=== PATIENT | female | born 2000 | race Caucasian/White ===

== ENCOUNTER 2021-11-20 15:06 | Outpatient (CLI) | payer SELFPAY ==
[2021-11-20 15:27] LABS: Absolute Lymphocyte Count 2.94 X10^3/uL (0.83-4.51); Absolute Neutrophil Count 9.1 X10^3/uL (2.0-7.7); Basophil# 0.07 X10^3/uL; Basophil% 0.5 % (0-1); Eosinophil# 0.27 X10^3/uL; Eosinophils% 2.1 % (0-5); Hemoglobin 11.8 g/dL (12.0-15.0); Lymphocyte # 2.94 X10^3/ul (0.83-4.51); Lymphocyte % 22.4 % (19-41); Mean Corp Hgb Conc 34.7 g/dL (32-36); Mean Corpuscular Hgb 31.1 pg (27.0-32.0); Mean Corpuscular Volume 89.5 fL (81-99); Mean Platelet Vol. 9.5 fl (6.2-12.0); Monocyte# 0.76 X10^3/uL; Monocyte% 5.8 % (0-10); NRBC Flagged by Analyzer 0 % (0-5); Neutrophil # 9.08 X10^3/uL (2.7-7.7); Platelet Count 215 K/mm3 (150-450); RBC Distribution Width CV 12.1 % (11.6-14.6); RBC Distribution Width SD 39.8 fl (35.1-43.9); White Blood Count 13.2 K/mm3 (4.4-11.0)
[2021-11-21 07:56] LABS: Rubella IgG Non-Reactive (Nonreactive)
[2021-12-01 23:09] LABS: HPV APTIMA, High Risk Negative (Negative)
[2021-12-01 23:11] LABS: HPV Reflexed? YES, CHARGE PATIENT
== END 2021-11-20 23:59 | disposition home or self-care (01) ==
PROVIDERS: Referring Provider Obstetrics & Gynecology; Visit Provider Obstetrics & Gynecology
DX: Z34.90 Encounter for supervision of normal pregnancy, unspecified, unspecified trimester (principal)
CPT/HCPCS: 36415; 85025; 86762; 86850; 86900; 86901; 87086; 87088; 87624; 88175; G0145

== ENCOUNTER → 2022-02-06 | Outpatient (CLI) | payer SELFPAY ==
--- NOTE | 2022-02-06 12:20 | US_ITS ---
INDICATION: , 90 EXAMINATION: Ultrasound US OB Greater Than 14 Weeks TECHNIQUE: Transabdominal and endovaginal pelvic obstetric ultrasound was performed. COMPARISON: None received. FINDINGS: Single live intrauterine fetus in breech presentation with heart rate 138 BPM. Grade 0 anterofundal placenta with no placenta previa or abruption. Closed cervix measures 4 cm length on endovaginal imaging. Amniotic fluid within normal limits, largest pocket measuring 4.2 x 5.5 cm. Maternal adnexa imaged but ovaries are not visualized. Visualized and unremarkable 4 chamber heart, spine, intracranial structures, facial profile, diaphragm, stomach, abdominal wall, kidneys, urinary bladder, three-vessel umbilical cord, cord insertion and 4 extremities. Female genitalia suggested. Estimated gestational age of 19 weeks 0 days based on biometrics with SANDRINE of 07/03/2022. Concordant with clinical age of 19 weeks 1 day, LMP 09/25/2021. Estimated weight 277 g, 46th percentile. biometrics: BPD: 4.36 cm: 19 weeks, 1 day HC: 16.21 cm: 18 weeks, 6 days AC: 13.91 cm: 19 weeks, 2 days FL: 2.91 cm: 18 weeks, 6 days IMPRESSION: Single live intrauterine in breech presentation with no acute abnormality. EGA by ultrasound is 19 weeks 0 days and clinical age of 19 weeks 1 day. Electronically Signed: Mark Christianson MD at 3:37 EDT , INDICATION: anatomy EXAMINATION: Ultrasound US OB Transvaginal TECHNIQUE: Transabdominal and endovaginal pelvic obstetric ultrasound was performed. COMPARISON: None received. FINDINGS: Single live intrauterine fetus in breech presentation with heart rate 138 BPM. Grade 0 anterofundal placenta with no placenta previa or abruption. Closed cervix measures 4 cm length on endovaginal imaging. Amniotic fluid within normal limits, largest pocket measuring 4.2 x 5.5 cm. Maternal adnexa imaged but ovaries are not visualized. Visualized and unremarkable 4 chamber heart, spine, intracranial structures, facial profile, diaphragm, stomach, abdominal wall, kidneys, urinary bladder, three-vessel umbilical cord, cord insertion and 4 extremities. Female genitalia suggested. Estimated gestational age of 19 weeks 0 days based on biometrics with SANDRINE of 07/03/2022. Concordant with clinical age of 19 weeks 1 day, LMP 09/25/2021. Estimated weight 277 g, 46th percentile. biometrics: BPD: 4.36 cm: 19 weeks, 1 day HC: 16.21 cm: 18 weeks, 6 days AC: 13.91 cm: 19 weeks, 2 days FL: 2.91 cm: 18 weeks, 6 days US/Transvaginal w/Preg US IMPRESSION: Single live intrauterine in breech presentation with no acute abnormality. EGA by ultrasound is 19 weeks 0 days and clinical age of 19 weeks 1 day. Electronically Signed: Mark Christianson MD at 3:38 EDT ,
--- NOTE | 2022-02-06 12:20 | US_ITS ---
INDICATION: , 90 EXAMINATION: Ultrasound US OB Greater Than 14 Weeks TECHNIQUE: Transabdominal and endovaginal pelvic obstetric ultrasound was performed. COMPARISON: None received. FINDINGS: Single live intrauterine fetus in breech presentation with heart rate 138 BPM. Grade 0 anterofundal placenta with no placenta previa or abruption. Closed cervix measures 4 cm length on endovaginal imaging. Amniotic fluid within normal limits, largest pocket measuring 4.2 x 5.5 cm. Maternal adnexa imaged but ovaries are not visualized. Visualized and unremarkable 4 chamber heart, spine, intracranial structures, facial profile, diaphragm, stomach, abdominal wall, kidneys, urinary bladder, three-vessel umbilical cord, cord insertion and 4 extremities. Female genitalia suggested. Estimated gestational age of 19 weeks 0 days based on biometrics with SANDRINE of 07/03/2022. Concordant with clinical age of 19 weeks 1 day, LMP 09/25/2021. Estimated weight 277 g, 46th percentile. biometrics: BPD: 4.36 cm: 19 weeks, 1 day HC: 16.21 cm: 18 weeks, 6 days AC: 13.91 cm: 19 weeks, 2 days FL: 2.91 cm: 18 weeks, 6 days IMPRESSION: Single live intrauterine in breech presentation with no acute abnormality. EGA by ultrasound is 19 weeks 0 days and clinical age of 19 weeks 1 day. Electronically Signed: Mark Christianson MD at 3:37 EDT , INDICATION: anatomy EXAMINATION: Ultrasound US OB Transvaginal TECHNIQUE: Transabdominal and endovaginal pelvic obstetric ultrasound was performed. COMPARISON: None received. FINDINGS: Single live intrauterine fetus in breech presentation with heart rate 138 BPM. Grade 0 anterofundal placenta with no placenta previa or abruption. Closed cervix measures 4 cm length on endovaginal imaging. Amniotic fluid within normal limits, largest pocket measuring 4.2 x 5.5 cm. Maternal adnexa imaged but ovaries are not visualized. Visualized and unremarkable 4 chamber heart, spine, intracranial structures, facial profile, diaphragm, stomach, abdominal wall, kidneys, urinary bladder, three-vessel umbilical cord, cord insertion and 4 extremities. Female genitalia suggested. Estimated gestational age of 19 weeks 0 days based on biometrics with SANDRINE of 07/03/2022. Concordant with clinical age of 19 weeks 1 day, LMP 09/25/2021. Estimated weight 277 g, 46th percentile. biometrics: BPD: 4.36 cm: 19 weeks, 1 day HC: 16.21 cm: 18 weeks, 6 days AC: 13.91 cm: 19 weeks, 2 days FL: 2.91 cm: 18 weeks, 6 days US/OB Anatomy Scan IMPRESSION: Single live intrauterine in breech presentation with no acute abnormality. EGA by ultrasound is 19 weeks 0 days and clinical age of 19 weeks 1 day. Electronically Signed: Mark Crhistianson MD at 3:38 EDT ,
== END | disposition home or self-care (01) ==
PROVIDERS: Visit Provider Obstetrics & Gynecology
DX: Z34.00 Encounter for supervision of normal first pregnancy, unspecified trimester (principal)
CPT/HCPCS: 76805; 76817

== ENCOUNTER → 2022-04-08 | Outpatient (CLI) | payer SELFPAY ==
[2022-04-08 14:42] LABS: Absolute Lymphocyte Count 2.05 X10^3/uL (0.83-4.51); Basophil# 0.03 X10^3/uL; Basophil% 0.3 % (0-1); Eosinophil# 0.12 X10^3/uL; Eosinophils% 1.1 % (0-5); Hematocrit 34.2 % (37-47); Hemoglobin 11.8 g/dL (12.0-15.0); Lymphocyte # 2.05 X10^3/ul (0.83-4.51); Lymphocyte % 18.9 % (19-41); Mean Corp Hgb Conc 34.5 g/dL (32-36); Mean Corpuscular Hgb 32.2 pg (27.0-32.0); Mean Corpuscular Volume 93.2 fL (81-99); Mean Platelet Vol. 9.5 fl (6.2-12.0); Monocyte# 0.59 X10^3/uL; Monocyte% 5.5 % (0-10); NRBC Flagged by Analyzer 0 % (0-5); Neutrophil # 7.95 X10^3/uL (2.7-7.7); Neutrophil % 73.5 % (47-70); Platelet Count 230 K/mm3 (150-450); RBC Distribution Width CV 12.3 % (11.6-14.6); RBC Distribution Width SD 42.5 fl (35.1-43.9); Red Blood Count 3.67 M/mm3 (4.2-5.4); White Blood Count 10.8 K/mm3 (4.4-11.0)
[2022-04-08 14:57] LABS: Glucose Challenge Gest 1H 50g 115 mg/dL (70-140)
== END | disposition home or self-care (01) ==
PROVIDERS: Referring Provider Nurse Practitioner Women's Health; Visit Provider Nurse Practitioner Women's Health
DX: Z34.90 Encounter for supervision of normal pregnancy, unspecified, unspecified trimester (principal)
CPT/HCPCS: 36415; 82950; 85025

== ENCOUNTER → 2022-06-03 | Outpatient (CLI) | payer OTHER, SELFPAY | END | disposition home or self-care (01) | PROVIDERS: Visit Provider Obstetrics & Gynecology | DX: Z34.00 Encounter for supervision of normal first pregnancy, unspecified trimester (principal) | CPT/HCPCS: 87081 ==

== ENCOUNTER 2022-06-30 22:45 | Outpatient (CLI) | payer SELFPAY ==
[2022-06-30 22:49] VITALS: BMI 32.1
[2022-06-30 23:02] VITALS: BP 136/84; PULSE 102; PULSE 105; TEMP 36.9; O2SAT 98
[2022-06-30 23:59] LABS: ROM Internal Control Test YES-OK TO RESULT pt. (Internal QC); ROM Patient Test Negative (Negative)
--- NOTE | 2022-07-01 07:38 | PCM.PN.OB ---
Subjective Subjective pt called with sudden gush of fluid Objective Data Objective Data Vital Signs: Vital Signs Temp Pulse BP Pulse Ox 98.5 F 105 H 136/84 H 98 06/30/22 23:02 06/30/22 23:02 06/30/22 23:02 06/30/22 23:02 Weight: 187 lb 6.4 oz Body Mass Index (BMI) 32.1 Lab / Micro Data Labs: Laboratory Results - last 24 hr 06/30/22 23:14: Vag Amniotic Fld Detect Negative
--- NOTE | 2022-07-01 14:34 | OB.TRI.HP_ITS ---
HPI - General HPI Narrative SALMA EDWARDS, is a 21 who presents with leaking fluid and some contractions. She states like she had a sudden gush of fluid but then stopped. She states that this she thinks there is a possibility she may have urinated. Maternal Data Information SANDRINE Calculator Estimated Delivery Date Method Current WG Current Estimate 07/02/22 LMP (Certain) 39w 6d Other Estimates 07/06/22 Ultrasound #1 39w 2d PFSH PFSH Medical History ASCUS of cervix with negative high risk HPV Home Medications prenat.vits,dorothy,jpr-mbah-enrsy 1 tab PO DAILY 11/04/21 [History Last Taken 06/30/22 12:00] Allergy/AdvReac Type Severity Reaction Status Date / Time lactose Allergy Mild stomach Verified 06/30/22 23:02 cramps lettuce AdvReac Mild stomach Verified 06/30/22 23:02 cramps Family History Father Diabetes controlled with oral med Social History adopted: No household members: spouse current occupational status: unemployed pets and animals: No Smoking Status: Never smoker alcohol intake: never substance use type: does not use diet: lactose free well-balanced diet: daily or most days do you feel safe at home: Yes additional social history: Ran History 1 Elective abortions Hx Para 0 Spontaneous abortions Hx # Term Pregnancies Ectopic pregnancies Hx # Pregnancies Multiple births # of living children Visit Details Expected Delivery Route/Plan Labor Preferences- CB/BF classes: encouraged labor support person: Ran labor intervention preferences: only as needed, minimal intervention if possible pain management options preferred: natural cut cord/dad catch: Ran does not want to cut cord but may change his mind during labor. not comfortable around blood : yes PP control planned: none discussed possible routes of delivery and associated risks: [] special requests: [] Plans Covid status: counseled regarding risk of covid in vs vaccination and declined vaccination Flu vaccine: discussed Tdap vaccine: Rhogam: NA LARC form signed: yes Problem list reviewed and updated with the most current plan of care details and appropriate orders placed. Relevant counseling for the gestational age provided. Continue routine care and follow up unless otherwise noted in visit notes/problem list details OB Flowsheet Initial Weight: 130 lb Date -?-?-?-?-?-?-?-?-?-?-?-?- EGA Weight BP Urine Prot -?-?-?-?-?-?-?-?-?-?-?-?- Glucose FHR FuHt Pres Dilation -?-?-?-?-?-?-?-?-?-?-?-?- Effaced St Visit Note 11/20/21 -?-?-?-?-?-?-?-?-?-?-?-?- 8w 0d 130 lb (+0 oz) 120/80 -?-?-?-?-?-?-?-?-?-?-?-?- 160 -?-?-?-?-?-?-?-?-?-?-?-?- Sm- CRL 12mm con s with LMP 12/19/21 -?-?-?-?-?-?-?-?-?-?-?-?- 12w 1d 138 lb 6 oz (+8 lb 6 oz) 128/84 Negative -?-?-?-?-?-?-?-?-?-?-?-?- Negative 163 -?-?-?-?-?-?-?-?-?-?-?-?- JV- normal bedsi de ultrasound interval growth. anatomy through [facility] ordered. 01/12/22 -?-?-?-?-?-?-?-?-?-?-?-?- 15w 4d 141 lb 8 oz (+11 lb 8 oz) 110/60 Negative -?-?-?-?-?-?-?-?-?-?-?-?- Negative 161 -?-?-?-?-?-?-?-?-?-?-?-?- MH-No VB. Feels well. Denies concerns. Anatomy US 02/06 [facility] 02/13/22 -?-?-?-?-?-?-?-?-?-?-?-?- 20w 1d 152 lb 8 oz (+22 lb 8 oz) 130/62 Negative -?-?-?-?-?-?-?-?-?-?-?-?- Negative 155 -?-?-?-?-?-?-?-?-?-?-?-?- JV- anatomy scan reviewed and normal. weight gain of 10 pounds in 5 weeks discussed. pt reassured and we discussed making healthy decisions with food choices 03/13/22 -?-?-?-?-?-?-?-?-?-?-?-?- 24w 1d 159 lb (+29 lb) 116/70 Negative -?-?-?-?-?-?-?-?-?-?-?-?- Negative 150 24 -?-?-?-?-?-?-?-?-?-?-?-?- SM- no vb lof go od fm no regular ctx 04/08/22 -?-?-?-?-?-?-?-?-?-?-?-?- 27w 6d 167 lb 2 oz (+37 lb 2 oz) 136/78 Negative -?-?-?-?-?-?-?-?-?-?-?-?- Negative 151 27 -?-?-?-?-?-?-?-?-?-?-?-?- MH-NO VB, LOF. G ood FM. Some swelling of feet, reassured. 28 wk labs, [facility] 05/06/22 -?-?-?-?-?-?-?-?-?-?-?-?- 31w 6d 174 lb 4 oz (+44 lb 4 oz) 126/82 Negative -?-?-?-?-?-?-?-?-?-?-?-?- Negative 135 31 -?-?-?-?-?-?-?-?-?-?-?-?- JV- no lof ,vagi nal bleeding, or dec fm. larc signed today, 05/13/22 -?-?-?-?-?-?-?-?-?-?-?-?- 32w 6d 174 lb (+44 lb) 134/80 -?-?-?-?-?-?-?-?-?-?-?-?- 135 33 -?-?-?-?-?-?-?-?-?-?-?-?- SM- no vb lof go od fm no reuglar ctx 06/03/22 -?-?-?-?-?-?-?-?-?-?-?-?- 35w 6d 177 lb 2 oz (+47 lb 2 oz) 120/87 Negative -?-?-?-?-?-?-?-?-?-?-?-?- Negative 140 35 Cephalic 0 -?-?-?-?-?-?-?-?-?-?-?-?- JV- no lof ,v ag inal bleeding, or dec fm. wants cervcal exam. 06/10/22 -?-?-?-?-?-?-?-?-?-?-?-?- 36w 6d 182 lb 2 oz (+52 lb 2 oz) 136/84 Negative -?-?-?-?-?-?-?-?-?-?-?-?- Negative 125 36 Cephalic 0 .5 -?-?-?-?-?-?-?-?-?-?-?-?- JV- no lof, vagi nal bleeding, or dec fm. GBS neg. labor precautions discussed. 06/19/22 -?-?-?-?--?-?-?-?-?-?-?-?- 38w 1d 181 lb 4 oz (+51 lb 4 oz) 132/85 Negative -?-?-?-?-?-?-?-?-?-?-?-?- Negative 130 38 Cephalic 2 -?-?--?-?-?-?-?-?-?-?-?-?- 50 -2 SM- no vb lof good fm no regular ctx 06/24/22 -?-?-?-?-?-?-?-?-?-?-?-?- 38w 6d 184 lb (+54 lb) 126/85 Negative -?-?-?-?-?-?-?-?-?-?-?-?- Negative 150 39 Cephalic 2 -?-?-?-?-?-?-?-?-?-?-?-?- 50 -2 LC- no lof ,vb,consistent ctx. good FM. gbs negative. ROS Constitutional Constitutional: Reports systems reviewed and no addt'l complaints, except as documented Gastrointestinal Gastrointestinal: Denies bloating, constipation, cramping, diarrhea, nausea or vomiting Genitourinary Genitourinary: Reports other Details: Denies vaginal odor, vaginal bleeding, or vaginal discharge ; Denies difficulty urinating or flank pain NST FHR Rate Baby A Baseline: 120's-130's with some changes in baseline throughout. Variability:: Moderate Accelerations:: 15 x 15 Decelerations:: None NST Reactive:: Yes FHR Category:: Category I Assessment & Plan (1) ASCUS of cervix with negative high risk HPV: (2) Rubella non-immune status, antepartum: COMMENT: MMR pp (3) Supervision of normal first : QUALIFIERS: Trimester: second trimester Qualified Code(s): Z34.02 - Encounter for supervision of normal first , second trimester COMMENT: PRR SANDRINE: 07/02/22 girl [place] Spouse: Ran (SP LABS urinecx, cbc, blood type, rubella) (4) : QUALIFIERS: Weeks of gestation: 38 weeks Qualified Code(s): Z3A.38 - 38 weeks gestation of COMMENT: GBS neg. declines genetic and carrier screening (5) False labor after 37 completed weeks of gestation: COMMENT: seen in triage 06/30/22 - unchanged cx negative rom + PLAN: rom plus neg. no signs of active labor. dc to home. Charges/Coding Multi Select Codes Urinary/Genital Urinary/Genital CPT Codes: 40409-72 non-stress test Interp
--- NOTE | 2022-07-01 14:34 | OB.TRI.NOTE ---
HPI - General HPI Narrative SALMA EDWARDS, is a 21 who presents with leaking fluid and some contractions. She states like she had a sudden gush of fluid but then stopped. She states that this she thinks there is a possibility she may have urinated. Maternal Data Information SANDRINE Calculator Estimated Delivery Date Method Current WG Current Estimate 07/02/22 LMP (Certain) 39w 6d Other Estimates 07/06/22 Ultrasound #1 39w 2d PFSH PFSH Medical History ASCUS of cervix with negative high risk HPV Home Medications prenat.vits,dorothy,xrx-nnvj-xnrif 1 tab PO DAILY 11/04/21 [History Last Taken 06/30/22 12:00] Allergy/AdvReac Type Severity Reaction Status Date / Time lactose Allergy Mild stomach Verified 06/30/22 23:02 cramps lettuce AdvReac Mild stomach Verified 06/30/22 23:02 cramps Family History Father Diabetes controlled with oral med Social History adopted: No household members: spouse current occupational status: unemployed pets and animals: No Smoking Status: Never smoker alcohol intake: never substance use type: does not use diet: lactose free well-balanced diet: daily or most days do you feel safe at home: Yes additional social history: Ran History 1 Elective abortions Hx Para 0 Spontaneous abortions Hx # Term Pregnancies Ectopic pregnancies Hx # Pregnancies Multiple births # of living children Visit Details Expected Delivery Route/Plan Labor Preferences- CB/BF classes: encouraged labor support person: Ran labor intervention preferences: only as needed, minimal intervention if possible pain management options preferred: natural cut cord/dad catch: Ran does not want to cut cord but may change his mind during labor. not comfortable around blood : yes PP control planned: none discussed possible routes of delivery and associated risks: [] special requests: [] Plans Covid status: counseled regarding risk of covid in vs vaccination and declined vaccination Flu vaccine: discussed Tdap vaccine: Rhogam: NA LARC form signed: yes Problem list reviewed and updated with the most current plan of care details and appropriate orders placed. Relevant counseling for the gestational age provided. Continue routine care and follow up unless otherwise noted in visit notes/problem list details OB Flowsheet Initial Weight: 130 lb Date <del>?</del> EGA Weight BP Urine Prot <del>?</del> Glucose FHR FuHt Pres Dilation <del>?</del> Effaced St Visit Note 11/20/21 <del>?</del> 8w 0d 130 lb (+0 oz) 120/80 <del>?</del> 160 <del>?</del> Sm- CRL 12mm cons with LMP 12/19/21 <del>?</del> 12w 1d 138 lb 6 oz (+8 lb 6 oz) 128/84 Negative <del>?</del> Negative 163 <del>?</del> JV- normal bedside ultrasound interval growth. anatomy through [facility] ordered. 01/12/22 <del>?</del> 15w 4d 141 lb 8 oz (+11 lb 8 oz) 110/60 Negative <del>?</del> Negative 161 <del>?</del> MH-No VB. Feels well. Denies concerns. Anatomy US 02/06 [facility] 02/13/22 <del>?</del> 20w 1d 152 lb 8 oz (+22 lb 8 oz) 130/62 Negative <del>?</del> Negative 155 <del>?</del> JV- anatomy scan reviewed and normal. weight gain of 10 pounds in 5 weeks discussed. pt reassured and we discussed making healthy decisions with food choices 03/13/22 <del>?</del> 24w 1d 159 lb (+29 lb) 116/70 Negative <del>?</del> Negative 150 24 <del>?</del> SM- no vb lof good fm no regular ctx 04/08/22 <del>?</del> 27w 6d 167 lb 2 oz (+37 lb 2 oz) 136/78 Negative <del>?</del> Negative 151 27 <del>?</del> MH-NO VB, LOF. Good FM. Some swelling of feet, reassured. 28 wk labs, [facility] 05/06/22 <del>?</del> 31w 6d 174 lb 4 oz (+44 lb 4 oz) 126/82 Negative <del>?</del> Negative 135 31 <del>?</del> JV- no lof ,vaginal bleeding, or dec fm. larc signed today, 05/13/22 <del>?</del> 32w 6d 174 lb (+44 lb) 134/80 <del>?</del> 135 33 <del>?</del> SM- no vb lof good fm no reuglar ctx 06/03/22 <del>?</del> 35w 6d 177 lb 2 oz (+47 lb 2 oz) 120/87 Negative <del>?</del> Negative 140 35 Cephalic 0 <del>?</del> JV- no lof ,v aginal bleeding, or dec fm. wants cervcal exam. 06/10/22 <del>?</del> 36w 6d 182 lb 2 oz (+52 lb 2 oz) 136/84 Negative <del>?</del> Negative 125 36 Cephalic 0.5 <del>?</del> JV- no lof, vaginal bleeding, or dec fm. GBS neg. labor precautions discussed. 06/19/22 <del>?</del> 38w 1d 181 lb 4 oz (+51 lb 4 oz) 132/85 Negative <del>?</del> Negative 130 38 Cephalic 2 <del>?</del> 50 -2 SM- no vb lof good fm no regular ctx 06/24/22 <del>?</del> 38w 6d 184 lb (+54 lb) 126/85 Negative <del>?</del> Negative 150 39 Cephalic 2 <del>?</del> 50 -2 LC- no lof,vb,consistent ctx. good FM. gbs negative. ROS Constitutional Constitutional: Reports systems reviewed and no addt'l complaints, except as documented Gastrointestinal Gastrointestinal: Denies bloating, constipation, cramping, diarrhea, nausea or vomiting Genitourinary Genitourinary: Reports other Details: Denies vaginal odor, vaginal bleeding, or vaginal discharge ; Denies difficulty urinating or flank pain NST FHR Rate Baby A Baseline: 120's-130's with some changes in baseline throughout. Variability:: Moderate Accelerations:: 15 x 15 Decelerations:: None NST Reactive:: Yes FHR Category:: Category I Assessment & Plan (1) ASCUS of cervix with negative high risk HPV: (2) Rubella non-immune status, antepartum: COMMENT: MMR pp (3) Supervision of normal first : QUALIFIERS: Trimester: second trimester Qualified Code(s): Z34.02 - Encounter for supervision of normal first , second trimester COMMENT: PRR SANDRINE: 07/02/22 girl [place] Spouse: Ran (SP LABS urinecx, cbc, blood type, rubella) (4) : QUALIFIERS: Weeks of gestation: 38 weeks Qualified Code(s): Z3A.38 - 38 weeks gestation of COMMENT: GBS neg. declines genetic and carrier screening (5) False labor after 37 completed weeks of gestation: COMMENT: seen in triage 06/30/22 - unchanged cx negative rom + PLAN: rom plus neg. no signs of active labor. dc to home. Charges/Coding Multi Select Codes Urinary/Genital Urinary/Genital CPT Codes: 75392-79 non-stress test Interp
== END 2022-07-01 01:25 | disposition home or self-care (01) ==
LOC: WPOUT 22:46 → WP 22:48
PROVIDERS: Visit Provider Obstetrics & Gynecology
DX: O47.1 False labor at or after 37 completed weeks of gestation (principal); Z3A.38 38 weeks gestation of pregnancy
CPT/HCPCS: 59025; 59050; 84112; 99218; G0378

== ENCOUNTER 2022-07-06 15:40 | Inpatient (IN) | payer SELFPAY ==
[2022-07-06] VITALS (18 sets, daily range): BP systolic 135–195; BP diastolic 79–104; PULSE 71–109; TEMP 36.4–36.7; O2SAT 93–100; BMI 31.7
[2022-07-06 15:46] LABS: Absolute Lymphocyte Count 1.92 X10^3/uL (0.83-4.51); Absolute Neutrophil Count 8.1 X10^3/uL (2.0-7.7); Basophil# 0.03 X10^3/uL; Basophil% 0.3 % (0-1); Eosinophil# 0.12 X10^3/uL; Eosinophils% 1.1 % (0-5); Hemoglobin 12.8 g/dL (12.0-15.0); Lymphocyte # 1.92 X10^3/ul (0.83-4.51); Lymphocyte % 17.8 % (19-41); Mean Corp Hgb Conc 34.6 g/dL (32-36); Mean Corpuscular Hgb 31.9 pg (27.0-32.0); Mean Corpuscular Volume 92.3 fL (81-99); Mean Platelet Vol. 10.4 fl (6.2-12.0); Monocyte# 0.59 X10^3/uL; Monocyte% 5.5 % (0-10); NRBC Flagged by Analyzer 0 % (0-5); Neutrophil % 74.9 % (47-70); Platelet Count 242 K/mm3 (150-450); RBC Distribution Width SD 40.8 fl (35.1-43.9); Red Blood Count 4.01 M/mm3 (4.2-5.4); White Blood Count 10.8 K/mm3 (4.4-11.0)
--- NOTE | 2022-07-06 16:34 | HP.PCM.OB_ITS ---
HPI - General General Date of Admission: 07/06/22 HPI Narrative SALMA EDWARDS, is a 21 F who presents to labor and at 40+4 (based on LMP) for rule out SROM, patient reports sudden gush of clear leaking of fluid at 1230. intermittent contractions, no vaginal bleeding, active fetus. care is complicated by ASCUS, rubella nonimmune, limited screening. Patient is O+, 1 hour glucose 115. 28-week H&H 12.8/37. Blood pressure on admission 130/63 however subsequent repeat pressures have been in the 140-149-93/98. Patient denies headaches, visual changes, right epigastric pain. Maternal Data Information SANDRINE Calculator Estimated Delivery Date Method Current WG Current Estimate 07/02/22 LMP (Certain) 40w 4d Other Estimates 07/06/22 Ultrasound #1 40w 0d Final SANDRINE Source: LMP Gestational age: 40+4 PFSH PFSH Medical History ASCUS of cervix with negative high risk HPV Home Medications prenat.vits,dorothy,[id number] 1 tab PO DAILY 11/04/21 [History Last Taken 07/06/22 11:00] Allergy/AdvReac Type Severity Reaction Status Date / Time lactose Allergy Mild stomach Verified 06/30/22 23:02 cramps lettuce AdvReac Mild stomach Verified 06/30/22 23:02 cramps Family History Father Diabetes controlled with oral med Social History adopted: No household members: spouse current occupational status: unemployed pets and animals: No Smoking Status: Former smoker alcohol intake: never substance use type: does not use diet: lactose free well-balanced diet: daily or most days do you feel safe at home: Yes additional social history: Ran History 1 Elective abortions Hx Para 0 Spontaneous abortions Hx # Term Pregnancies Ectopic pregnancies Hx # Pregnancies Multiple births # of living children Visit Details Expected Delivery Route/Plan Labor Preferences- CB/BF classes: encouraged labor support person: Ran labor intervention preferences: only as needed, minimal intervention if possible pain management options preferred: natural cut cord/dad catch: Ran does not want to cut cord but may change his mind during labor. not comfortable around blood : yes PP control planned: none discussed possible routes of delivery and associated risks: [] special requests: [Desires to assist in delivery] Plans Covid status: counseled regarding risk of covid in vs vaccination and declined vaccination Flu vaccine: discussed Tdap vaccine: Rhogam: NA LARC form signed: yes Problem list reviewed and updated with the most current plan of care details and appropriate orders placed. Relevant counseling for the gestational age provided. Continue routine care and follow up unless otherwise noted in visit notes/problem list details OB Flowsheet Initial Weight: 130 lb Date -?-?-?-?-?-?-?-?-?-?-?-?- EGA Weight BP Urine Prot -?-?-?-?-?-?-?-?-?-?-?-?- Glucose FHR FuHt Pres Dilation -?-?-?-?-?-?-?-?-?-?-?-?- Effaced St Visit Note 11/20/21 -?--?-?-?-?-?-?-?-?-?-?-?- 8w 0d 130 lb (+0 oz) 120/80 -?-?-?-?-?-?-?-?-?-?-?-?- 160 -?-?-?-?-?-?-?-?-?-?-?-?- Sm- CRL 12mm con s with LMP 12/19/21 -?-?-?-?-?-?-?-?-?-?-?-?- 12w 1d 138 lb 6 oz (+8 lb 6 oz) 128/84 Negative -?-?-?-?-?-?-?-?-?-?-?-?- Negative 163 -?-?-?-?-?-?-?-?-?-?-?-?- JV- normal bedsi de ultrasound interval growth. anatomy through [facility] ordered. 01/12/22 -?-?-?-?-?-?-?-?-?-?-?-?- 15w 4d 141 lb 8 oz (+11 lb 8 oz) 110/60 Negative -?-?-?-?-?-?-?-?-?-?-?-?- Negative 161 -?-?-?-?-?-?-?-?-?-?-?-?- -No VB. Feels well. Denies concerns. Anatomy US 02/06 [facility] 02/13/22 -?-?-?-?-?-?-?-?-?-?-?-?- 20w 1d 152 lb 8 oz (+22 lb 8 oz) 130/62 Negative -?-?-?-?-?-?-?-?-?-?-?-?- Negative 155 -?-?-?-?-?-?-?-?-?-?-?-?- JV- anatomy scan reviewed and normal. weight gain of 10 pounds in 5 weeks discussed. pt reassured and we discussed making healthy decisions with food choices 03/13/22 -?-?-?-?-?-?-?-?-?-?-?-?- 24w 1d 159 lb (+29 lb) 116/70 Negative -?--?-?-?-?-?-?-?-?-?-?-?- Negative 150 24 -?-?-?-?-?-?-?-?-?-?-?-?- - no vb lof go od fm no regular ctx 04/08/22 -?-?-?-?-?-?-?-?-?-?-?-?- 27w 6d 167 lb 2 oz (+37 lb 2 oz) 136/78 Negative -?-?-?-?-?-?-?-?-?-?-?-?- Negative 151 27 -?-?-?-?-?-?-?-?-?-?-?-?- -NO VB, LOF. G ood FM. Some swelling of feet, reassured. 28 wk labs, [facility] 05/06/22 -?-?-?-?-?-?-?-?-?-?-?-?- 31w 6d 174 lb 4 oz (+44 lb 4 oz) 126/82 Negative -?-?-?-?-?-?-?-?-?-?-?-?- Negative 135 31 -?-?-?-?-?-?-?-?-?-?-?-?- JV- no lof ,vagi nal bleeding, or dec fm. larc signed today, 05/13/22 -?-?-?-?-?-?-?-?-?-?-?-?- 32w 6d 174 lb (+44 lb) 134/80 -?-?-?-?-?-?-?-?-?-?-?-?- 135 33 -?-?-?-?-?-?-?-?-?-?-?-?- SM- no vb lof go od fm no reuglar ctx 06/03/22 -?-?-?-?-?-?-?-?-?-?-?-?- 35w 6d 177 lb 2 oz (+47 lb 2 oz) 120/87 Negative -?-?-?-?-?-?-?-?-?-?--?-?- Negative 140 35 Cephalic 0 -?-?-?-?-?-?-?-?-?-?-?-?- JV- no lof ,v ag inal bleeding, or dec fm. wants cervcal exam. 06/10/22 -?-?-?-?-?-?--?-?-?-?-?-?- 36w 6d 182 lb 2 oz (+52 lb 2 oz) 136/84 Negative -?-?-?-?-?-?-?-?-?-?-?-?- Negative 125 36 Cephalic 0 .5 -?-?--?-?-?-?-?-?-?-?-?-?- JV- no lof, vagi nal bleeding, or dec fm. GBS neg. labor precautions discussed. 06/19/22 -?-?-?-?-?-?-?-?-?-?-?-?- 38w 1d 181 lb 4 oz (+51 lb 4 oz) 132/85 Negative -?-?-?-?-?-?-?-?-?-?-?-?- Negative 130 38 Cephalic 2 -?-?-?-?-?-?-?-?-?-?-?-?- 50 -2 SM- no vb lof good fm no regular ctx 06/24/22 -?-?-?-?-?-?-?-?-?-?-?-?- 38w 6d 184 lb (+54 lb) 126/85 Negative -?-?-?-?-?-?-?-?-?-?-?-?- Negative 150 39 Cephalic 2 -?-?-?-?-?-?-?-?-?-?-?-?- 50 -2 LC- no lof ,vb,consistent ctx. good FM. gbs negative. 07/03/22 -?-?-?-?-?-?-?-?-?-?-?-?- 40w 1d 185 lb (+55 lb) 126/80 Negative -?-?-?-?-?-?-?-?-?-?-?-?- Negative 145 40 Cephalic 3 -?-?-?-?-?-?-?-?-?-?-?-?- 80 -1 SM- no vb lof good fm no reuglar ctx membranes swept 07/06/22 -?-?-?-?-?-?-?-?-?-?-?-?- 40w 4d 185 lb (+55 lb) 138/79 143/98 149/93 -?-?-?-?-?-?-?-?-?-?-?--?- -?-?-?-?-?-?-?-?-?-?-?-?- NST FHR Rate Baby A Baseline: 145 Variability:: Moderate Accelerations:: 15 x 15 Decelerations:: None NST Reactive:: Yes FHR Category:: Category I Uterine Activity:: q2 minutes x60 seconds ROS Cardiovascular Cardiovascular: Denies abdominal pain, chest pain, diaphoresis, dyspnea, edema or fatigue Respiratory/Chest Respiratory/Chest: Denies change in mental status, chest congestion, chest tightness, cough, shortness of breath at rest, shortness of breath with exertion, breast mass, breast pain, breast skin changes, breast swelling, change in breast shape or nipple discharge Gastrointestinal Gastrointestinal: Denies diarrhea, hemorrhoids, nausea, vomiting or weight changes Genitourinary Genitourinary: Denies abdominal discomfort, burning urination, change in libido, change in urinary stream, contractions, difficulty urinating, dysuria, movement, low back pain, urinary frequency, urinary hesitancy, urinary incontinence or urinary urgency Musculoskeletal Musculoskeletal: Reports none Integumentary Integumentary: Reports none Neurologic Neurologic: Reports none Psychiatric Psychiatric: Reports none Endocrine Endocrinology: Reports none Hematologic/Lymphatic Hematologic/Lymphatic: Reports none Allergic/Immunologic Allergic/Immunologic: Reports none Vital Signs Vital Signs Vital Signs: 07/06/22 15:15 07/06/22 15:15 07/06/22 15:14 Temperature Temperature Source Pulse Rate 86 Blood Pressure 138/79 H BP Systolic 138 BP Diastolic 79 Pulse Ox 99 07/06/22 15:14 07/06/22 15:14 07/06/22 16:12 Temperature 98.1 F Temperature Source Temporal Pulse Rate Blood Pressure 143/98 H BP Systolic 143 BP Diastolic 98 Pulse Ox 07/06/22 16:12 07/06/22 16:13 07/06/22 16:13 Temperature Temperature Source Temporal Pulse Rate 92 Blood Pressure BP Systolic BP Diastolic Pulse Ox 98 07/06/22 16:13 07/06/22 16:30 07/06/22 16:30 Temperature 97.9 F Temperature Source Pulse Rate 87 Blood Pressure 149/93 H BP Systolic 149 BP Diastolic 93 Pulse Ox Weight Weight: 185 lb Body Mass Index (BMI) 31.7 Labs Labs Labs: Blood Type O POSITIVE Antibody Screen NEGATIVE Hct 37.0 % (37-47) Hgb 12.8 g/dL (12.0-15.0) Obstetrics US Syphilis Total Ab Pending Rubella IgG Antibody Non-Reactive (Nonreactive) Hep Bs Antigen Pending HIV 1&2 Antibody Pending Glucose 1 Hr 50 gm 115 mg/dL (70-140) Assessment & Plan (1) Elevated systolic blood pressure reading without diagnosis of hypertension: COMMENT: obtain preeclamptic work-up (2) Rubella non-immune status, antepartum: COMMENT: MMR pp (3) Supervision of normal first : QUALIFIERS: Trimester: second trimester Qualified Code(s): Z34.02 - Encounter for supervision of normal first , second trimester COMMENT: PRR SANDRINE: 07/02/22 girl [place] Spouse: Ran (SP LABS urinecx, cbc, blood type, rubella obtained) (4) : QUALIFIERS: Weeks of gestation: 40 weeks Qualified Code(s): Z3A.40 - 40 weeks gestation of COMMENT: GBS neg. declines genetic and carrier screening (5) SROM (spontaneous rupture of membranes): COMMENT: clear fluid. ROM at 1230pm 07/06 (6) Spontaneous onset of labor: COMMENT: admit at 3-4cm PLAN: minimal intervention unless labor curve is skewed. PLAN: Plan admit to L&D -obtain remaining self-pay labs -anticipate -case d/w Dr. Bender re:elevated BP agrees with POC. currently co-managed patient
[2022-07-06 16:53] LABS: HIV - WCH Non-Reactive (Nonreactive); Hepatitis B Surface Antigen Non-Reactive (Nonreactive); Hepatitis C Antibody Non-Reactive (Nonreactive)
[2022-07-06] MEDS: LACTATED RINGERS 500 ML 999 ML IV (16:53)
[2022-07-06] MEDS: Lactated Ringers 1,000 ML 50 ML IV (16:53)
[2022-07-06 18:31] LABS: AST(SGOT) 16 U/L (15-37); Alanine Aminotransfer ALT/SGPT 17 U/L (13-56); Creatinine, Serum 0.68 mg/dL (0.55-1.02); EST Glomerular Filtration Rate 114 mL/min (>60); Est Glom Filt Rate - Afr Amer 137 mL/min (>60); Estimated Creatinine Clearance 111.11 ml/min; Uric Acid 3.2 mg/dL (2.6-6.0)
[2022-07-06 18:36] LABS: Protein, Urine (Random) 7.2 mg/dL (<11.9); Protein:Creat Ratio 537 mg/g CRE (0-200)
[2022-07-06 19:12] LABS: Chlamydia Trachomatis by PCR Negative (Negative); Neisserai gonorrhoeae by PCR Negative (Negative); Probe Check PASS; Sample Adequacy Control PASS; Specimen Processing Control PASS
--- NOTE | 2022-07-06 21:43 | PCM.PN.OB ---
Subjective Subjective Patient tolerating contractions well continues to breathe through. Objective Data Objective Data Patient now with improved blood pressure without medical intervention. He continues to deny headache, blurred vision, right epigastric pain. clustering contraction pattern. performed unilateral squats x3 contractions bilaterally. with improved contraction pattern. Vital Signs: Vital Signs Temp Pulse BP Pulse Ox 97.8 F 79 137/94 H 99 07/06/22 20:41 07/06/22 20:40 07/06/22 20:40 07/06/22 20:41 Weight: 185 lb Body Mass Index (BMI) 31.7 Intake & Output: Intake and Output for Last 24 Hours 07/04/22 07/05/22 07/06/22 23:59 23:59 23:59 Intake Total 500 / 500 Balance 500 / 500 Lab / Micro Data Attestation: I reviewed the patient's lab results. Result Diagrams: 07/06/22 15:05 07/06/22 17:05 Labs: Laboratory Results - last 24 hr 07/06/22 15:05: WBC 10.8, RBC 4.01 L, Hgb 12.8, Hct 37.0, MCV 92.3, MCH 31.9, MCHC 34.6, RDW Std Deviation 40.8, RDW Coeff of Lilliana 12.0, Plt Count 242, MPV 10.4, Immature Gran % (Auto) 0.400, Neut % (Auto) 74.9 H, Lymph % (Auto) 17.8 L, Reeves % (Auto) 5.5, Eos % (Auto) 1.1, Baso % (Auto) 0.3, Absolute Neuts (auto) 8.1 H, Absolute Lymphs (auto) 1.92, Nucleated RBC % 0 07/06/22 15:05: Blood Type O POSITIVE, Antibody Screen NEGATIVE 07/06/22 15:05: Hep Bs Antigen Non-Reactive, Hepatitis C Antibody Non-Reactive, HIV 1&2 Antibody Non-Reactive 07/06/22 17:05: Chlam trachomat DNA PCR Negative, N.gonorrhoeae DNA (PCR) Negative 07/06/22 17:05: U Random Total Protein 7.2, Urine Creatinine 13.40, Protein/Creatinin Ratio 537 H 07/06/22 17:05: Creatinine 0.68, Estim Creat Clear Calc 111.11, Est GFR (MDRD) Af Amer 137, Est GFR (MDRD) Non-Af 114, Uric Acid 3.2, AST 16, ALT 17 Micro: Microbiology 07/06/22 15:05 Nasal Secretion SARS-CoV-2 Antigen (Rapid) - Final NST FHR Rate Baby A Baseline: 135 Variability:: Moderate Decelerations:: None NST Reactive:: Yes FHR Category:: Category I Uterine Activity:: q2-6.5min Assessment & Plan (1) Spontaneous onset of labor: COMMENT: admit at 3-4cm. Patient continues to make slow cervical change. clustering contraction pattern. performed unilateral squats x3 contractions bilaterally. with improved contraction pattern. continue with frequent position changes Recheck cervix at 22:30 if unchanged cervical exam please start Pitocin per protocol. (2) SROM (spontaneous rupture of membranes): COMMENT: clear fluid. ROM at 1230pm 07/06. Afebrile (3) Rubella non-immune status, antepartum: COMMENT: MMR pp (4) Pre-eclampsia: COMMENT: mild pre-eclampsia. now mild elevated BP. P:C >520. LFT normal, CBc normal.
[2022-07-06] MEDS: 0.9% Saline Lock 10 ML Syringe IV (23:35)
[2022-07-06] MEDS: Oxytocin 15 Units/NS 250ml 15 UNITS/250 ML IV.SOLN 2 UNITS IV (23:38)
[2022-07-07] VITALS (131 sets, daily range): BP systolic 98–180; BP diastolic 42–107; PULSE 78–245; RESP 14–20; TEMP 35.9–37.4; O2SAT 80–99
[2022-07-07] MEDS: Ondansetron 4 MG/2 ML Vial IV (03:09)
[2022-07-07] MEDS: fentaNYL 100 MCG/2 ML Ampul IV (03:24)
[2022-07-07] MEDS: Labetalol (Prefilled) 20 MG/4 ML IV ×3 (05:40→07:06)
[2022-07-07] MEDS: Magnesium Sulfate 4gm/100mL 4 GM/100 ML IV.SOLN. IV (05:42)
--- NOTE | 2022-07-07 05:46 | PCM.PN.OB ---
Subjective Subjective Lauren Rodriguez continues to cope through contractions. Voiding spontaneously, tolerating clear liquids. Denies headache, right epigastric pain, visual changes. Objective Data Objective Data Patient with strong contractions to palpation. Blood pressure 173/98 with repeat 162/93. No clonus, DTR +2. on 4mu of pitocin for augmentation. Cervical exam reveals 9/90/0. Vital Signs: Vital Signs Temp Pulse BP Pulse Ox 98.2 F 92 162/93 H 94 07/07/22 05:16 07/07/22 05:45 07/07/22 05:31 07/07/22 05:45 Weight: 185 lb Body Mass Index (BMI) 31.7 Intake & Output: Intake and Output for Last 24 Hours 07/05/22 07/06/22 07/07/22 23:59 23:59 23:59 Intake Total 500 / 500 581.37 / 581.37 Balance 500 / 500 581.37 / 581.37 Lab / Micro Data Attestation: I reviewed the patient's lab results. Result Diagrams: 07/06/22 15:05 07/06/22 17:05 Labs: Laboratory Results - last 24 hr 07/06/22 15:05: WBC 10.8, RBC 4.01 L, Hgb 12.8, Hct 37.0, MCV 92.3, MCH 31.9, MCHC 34.6, RDW Std Deviation 40.8, RDW Coeff of Lilliana 12.0, Plt Count 242, MPV 10.4, Immature Gran % (Auto) 0.400, Neut % (Auto) 74.9 H, Lymph % (Auto) 17.8 L, Hand % (Auto) 5.5, Eos % (Auto) 1.1, Baso % (Auto) 0.3, Absolute Neuts (auto) 8.1 H, Absolute Lymphs (auto) 1.92, Nucleated RBC % 0 07/06/22 15:05: Blood Type O POSITIVE, Antibody Screen NEGATIVE 07/06/22 15:05: Hep Bs Antigen Non-Reactive, Hepatitis C Antibody Non-Reactive, HIV 1&2 Antibody Non-Reactive 07/06/22 17:05: Chlam trachomat DNA PCR Negative, N.gonorrhoeae DNA (PCR) Negative 07/06/22 17:05: U Random Total Protein 7.2, Urine Creatinine 13.40, Protein/Creatinin Ratio 537 H 07/06/22 17:05: Creatinine 0.68, Estim Creat Clear Calc 111.11, Est GFR (MDRD) Af Amer 137, Est GFR (MDRD) Non-Af 114, Uric Acid 3.2, AST 16, ALT 17 Micro: Microbiology 07/06/22 15:05 Nasal Secretion SARS-CoV-2 Antigen (Rapid) - Final Physical Exam Resp Effort and Inspection: able to speak in complete sentences and symmetric chest movement Manual OB Exam: presentation cephalic, dilated 9, effaced 90 and station 0 Amniotic Fluid: clear amniotic fluid Extremity normal to inspection and full ROM Neuro oriented x3, no focal motor deficits and deep tendon reflexes 2+ bilaterally Psych mental status grossly normal NST FHR Rate Baby A Baseline: 145 Variability:: Moderate Accelerations:: 15 x 15 Decelerations:: Early NST Reactive:: Yes FHR Category:: Category I Assessment & Plan (1) Pre-eclampsia: COMMENT: mild pre-eclampsia. now mild elevated BP. P:C >520. LFT normal, CBc normal. (2) Spontaneous onset of labor: COMMENT: admit at 3-4cm. Patient continues to make slow cervical change. clustering contraction pattern. performed unilateral squats x3 contractions bilaterally. with improved contraction pattern. continue with frequent position changes labor augmented with pitocin. (3) SROM (spontaneous rupture of membranes): COMMENT: clear fluid. ROM at 1230pm 07/06. Afebrile (4) Rubella non-immune status, antepartum: COMMENT: MMR pp (5) Supervision of normal first : QUALIFIERS: Trimester: second trimester Qualified Code(s): Z34.02 - Encounter for supervision of normal first , second trimester COMMENT: PRR SANDRINE: 07/02/22 girl [place] Spouse: Ran (SP LABS urinecx, cbc, blood type, rubella obtained) PLAN: Plan Patient with severe blood pressures x2 consulted with Dr. Bender who agrees with management of labetalol 20 mg IV push now, 4 mg magnesium sulfate bolus to continue with a rate of 2 mg. heart rate and maternal status are reassuring anticipate
[2022-07-07] MEDS: Magnesium Sulfate 20 GM/500 ML BAG IV (06:02)
[2022-07-07] MEDS: Labetalol 100 MG Tablet PO (06:07)
[2022-07-07] MEDS: Lactated Ringers 1,000 ML 50 ML IV (07:42)
[2022-07-07 08:48] LABS: Syphilis Antibodies Non-reactive
[2022-07-07] MEDS: DiphenhydrAMINE 50 MG/ML Syringe IV (09:00)
[2022-07-07] MEDS: LACTATED RINGERS 500 ML 999 ML IV (09:45)
[2022-07-07] MEDS: fentaNYL-bupivacaine (epidural) 100 ML BAG EPIDURAL (10:31)
--- NOTE | 2022-07-07 13:59 | EX.PCM.OBRPT ---
Assessment & Plan (1) Pre-eclampsia: COMMENT: mild pre-eclampsia. now mild elevated BP. P:C >520. LFT normal, CBc normal. (2) Spontaneous onset of labor: COMMENT: admit at 3-4cm. Patient continues to make slow cervical change. clustering contraction pattern. performed unilateral squats x3 contractions bilaterally. with improved contraction pattern. continue with frequent position changes labor augmented with pitocin. (3) SROM (spontaneous rupture of membranes): COMMENT: clear fluid. ROM at 1230pm 07/06. Afebrile (4) Elevated systolic blood pressure reading without diagnosis of hypertension: (5) ASCUS of cervix with negative high risk HPV: (6) Rubella non-immune status, antepartum: COMMENT: MMR pp (7) Supervision of normal first : QUALIFIERS: Trimester: second trimester Qualified Code(s): Z34.02 - Encounter for supervision of normal first , second trimester COMMENT: PRR SANDRINE: 07/02/22 girl [place] Spouse: Ran (SP LABS urinecx, cbc, blood type, rubella obtained) (8) : QUALIFIERS: Weeks of gestation: 40 weeks Qualified Code(s): Z3A.40 - 40 weeks gestation of COMMENT: GBS neg. declines genetic and carrier screening Maternal Data Information SANDRINE Calculator Estimated Delivery Date Method Current WG Current Estimate 07/02/22 LMP (Certain) 40w 5d Other Estimates 07/06/22 Ultrasound #1 40w 1d Vaginal Delivery Maternal Presentation Maternal Presentation: Spontaneous Rupture of Membranes Type of Induction: Pitocin Medical Reason for Induction: Suspected Chorioamnionitis Operative Information Date of Procedure: 07/07/22 Pre-Operative Diagnosis: 40 weeks 5 days , pre-eclampsia, pprom Post-Operative Diagnosis: 40 weeks 5 days , pre-eclampsia, pprom Surgery / Procedure Performed: Spontaneous Vaginal Delivery Type of Anesthesia: Epidural Estimated Blood Loss: 200cc Findings Description of Procedure: Patient began pushing and delivered the head in the JEFF presentation. The head was delivered atraumatically. The anterior and posterior shoulders delivered without complication followed by the rest of the infant and the infant was placed on the maternal abdomen. Delayed cord clamping was employed for approximately 60 seconds. Cord was clamped and cut and gentle traction was applied to the cord and the placenta delivered with some help unroofing the placental floor when the cord started to give way. The placenta delivered immediately following this and was noted to be intact with three-vessel cord. A manual sweep was also performed to ensure all parts and pieces of the placenta were delivered. The perineum and vagina were inspected and noted to have a 1st degree peineal laceration repaired with a 3-0 vicryl rapide suture. A small right labial tear was also reapproximated with a 3-0 vicryl suture. EBL was 200cc. Patient and infant tolerated delivery well. Presentation: Vertex Amniotic Membrane Rupture Type: Spontaneous Amniotic Fluid Description: Clear Placental Delivery Description: Expressed Placenta Disposition: [facility] Cord Vessel Description: 3 Vessels Cord Entanglement: None Infant A Gender: Female (1 minute): 8 (5 minute): 9 Delayed Cord Clamping: Yes Post Vaginal Delivery Medications Given After Delivery: IV Pitocin Episiotomy Description: None Laceration: 1st degree Multi Select Codes Urinary/Genital Urinary/Genital CPT Codes: 20943 Vaginal Delivery [facility]
[2022-07-07] MEDS: Oxytocin 15 Units/NS 250ml 15 UNITS/250 ML IV.SOLN 83 UNITS IV (14:06)
[2022-07-07] MEDS: Carboprost Tromethamine 250 MCG/ML Ampul IM (14:51)
--- NOTE | 2022-07-07 16:25 | NURSING ---
7254-called dr huerta, made aware of pt blood pressures trending up toward end of recovery and pt heart rate trending one teens -120's pretty consistently. had noted several moderate gushes during recovery with the 2 quarter size clots-did give hemabate per dr norwood order. to draw cbc and let pt rest for an hour and retake blood pressure and heart rate in an hour. may at some point restart mag but not at this time.
--- NOTE | 2022-07-07 16:30 | DCINST_ITS ---
Discharge Instructions Diet Discharge Diet: No restrictions Activity Discharge Activity: Return to Normal Activity, May Not Drive (while taking narcotic pain medications.) and May Shower May resume sexual activity in: 4-6 weeks Dressing / Incision Call your doctor if your incision/area has: Continuous Slow Oozing, Sudden Increased Bleeding, Increased Pain/ Swelling, Increased Redness and Foul Smelling Discharge Follow Up Care Please Follow Up With: Elsa Shaw, DO When: Call [phone] to make an appointment with your doctor in 6 weeks. If you had elevated blood pressure or 4th degree laceration, you will need to be seen in 2 weeks. Test Results: Test results from this visit will be discussed in further detail at your follow- up appointment, if applicable. Discharge Plan Admission Admit Date/Time: 07/06/22 15:40 Attending Provider: Elsa Shaw Primary Care Provider: Esperanza Physician,Rosalie Primary Discharge Orders/Prescriptions Prescriptions: No Action prenat.vits,dorothy,[id number] Tablet 1 tab PO DAILY Referrals / Follow Up: Care Physician,No Primary [Primary Care Provider] -
[2022-07-07 16:55] LABS: Hematocrit 33.6 % (37-47); Hemoglobin 11.8 g/dL (12.0-15.0); Mean Corp Hgb Conc 35.1 g/dL (32-36); Mean Corpuscular Hgb 32.6 pg (27.0-32.0); Mean Corpuscular Volume 92.8 fL (81-99); Platelet Count 226 K/mm3 (150-450); RBC Distribution Width CV 12.4 % (11.6-14.6); RBC Distribution Width SD 42.2 fl (35.1-43.9); Red Blood Count 3.62 M/mm3 (4.2-5.4); White Blood Count 21.8 K/mm3 (4.4-11.0)
[2022-07-07] MEDS: Labetalol 200 MG Tablet PO (21:12)
[2022-07-08 04:06] VITALS: BP 104/55; PULSE 109; RESP 18
[2022-07-08 10:06] VITALS: BP 121/76; PULSE 97; RESP 16; TEMP 36.6
[2022-07-08] MEDS: Labetalol 200 MG Tablet PO ×2 (10:10→22:04)
[2022-07-08 12:36] VITALS: BP 112/59; PULSE 90; RESP 16; TEMP 36.4
--- NOTE | 2022-07-08 13:47 | PCM.PN.OB ---
Subjective Subjective Patient doing well without complaints. Tolerating PO. Ambulating and voiding without difficulty. Feeding well. Denies chest pain, shortness of breath, calf pain/swelling, fevers, chills, lightheadedness. Objective Data Objective Data Vital Signs: Vital Signs Temp Pulse Resp BP Pulse Ox O2 Del Method 97.5 F L 90 16 112/59 L 96 Room Air 07/08/22 12:36 07/08/22 12:36 07/08/22 12:36 07/08/22 12:36 07/07/22 23:47 07/08/22 12:36 Oxygen Delivery Method Room Air Weight: 185 lb Body Mass Index (BMI) 31.7 Intake & Output: Intake and Output for Last 24 Hours 07/06/22 07/07/22 07/08/22 23:59 23:59 23:59 Intake Total 500 / 500 4140.20 / 4140.20 Output Total 2380 / 2380 Balance 500 / 500 1760.20 / 1760.20 Lab / Micro Data Attestation: I reviewed the patient's lab results. Result Diagrams: 07/07/22 16:40 07/06/22 17:05 Labs: Laboratory Results - last 24 hr 07/07/22 16:40: WBC 21.8 H, RBC 3.62 L, Hgb 11.8 L, Hct 33.6 L, MCV 92.8, MCH 32.6 H, MCHC 35.1, RDW Std Deviation 42.2, RDW Coeff of Lilliana 12.4, Plt Count 226, MPV 10.0 Micro: Microbiology 07/06/22 15:05 Nasal Secretion SARS-CoV-2 Antigen (Rapid) - Final ROS Cardiovascular Cardiovascular: Denies abdominal pain, chest pain, diaphoresis, dyspnea, edema or fatigue Respiratory/Chest Respiratory/Chest: Denies change in mental status, chest congestion, chest tightness, cough, shortness of breath at rest, shortness of breath with exertion, breast mass, breast pain, breast skin changes, breast swelling, change in breast shape or nipple discharge Gastrointestinal Gastrointestinal: Denies diarrhea, hemorrhoids, nausea, vomiting or weight changes Genitourinary Genitourinary: Denies abdominal discomfort, burning urination, change in libido, change in urinary stream, contractions, difficulty urinating, dysuria, movement, low back pain, urinary frequency, urinary hesitancy, urinary incontinence or urinary urgency Musculoskeletal Musculoskeletal: Reports none Integumentary Integumentary: Reports none Neurologic Neurologic: Reports none Psychiatric Psychiatric: Reports none Endocrine Endocrinology: Reports none Hematologic/Lymphatic Hematologic/Lymphatic: Reports none Allergic/Immunologic Allergic/Immunologic: Reports none Physical Exam Const alert, oriented x3 and no apparent distress General Appearance: cooperative, comfortable and well kempt Chest inspection of breasts normal Resp normal respiratory effort GI normal to inspection, nondistended, normoactive bowel sounds Palpation: soft and other Other Details: fundus 1fb below ; Negative for tender external exam normal Assessment & Plan (1) care following vaginal delivery: PLAN: s/p PPD # 1 1. routine post delivery care 2. breast feeding- support given 3. rh positive 4. rubella non immune-offer MMR prior to d/c
[2022-07-08 19:45] VITALS: BP 127/77; PULSE 88; RESP 17; TEMP 36.9
[2022-07-09 02:10] VITALS: BP 121/69; PULSE 76; RESP 16; TEMP 36.7
[2022-07-09 08:32] VITALS: BP 118/77; PULSE 77; RESP 16; TEMP 36.4
--- NOTE | 2022-07-09 09:00 | PCM.DC.SUM ---
Providers Date of Admission: 07/06/22 Primary Care Physician: No Primary Care Phys Reason For Visit: VAG DELIVERY Diagnosis Discharge Diagnosis (1) care following vaginal delivery: Status: Acute Code(s): Z39.2 - Encounter for routine follow-up Medications at Discharge Home Medications prenat.vits,dorothy,tuw-lzil-fpxir 1 tab PO DAILY 11/04/21 Hospital Course Operations None Procedures - (vaginal delivery ) Summary of Care Provided Minutes Spent on Discharge: 10 Hospital Course: The patient was admitted on 07/06/22 for IOL due to PROM and Pre-e. she progressed to complete and delivered a viable fetus almost 24 hours after her water broke. On post day #1 she slept on and off and used tylenol and motrin for cramping. On post day #2 she requested dc to home. her blood pressures were monitored and she was put on labetalol during her labor. she is being sent home on this with close follow up Physical Exam Const alert, oriented x3 and no apparent distress General Appearance: cooperative and comfortable Resp normal respiratory effort Cardio regular rate GI normal to inspection, nondistended, normoactive bowel sounds GI Narrative: uterus is firm below umbilicus Palpation: soft Back/Spine no CVA tenderness and thoraco-lumbar ROM normal Extremity normal to inspection, no clubbing, cyanosis or edema, no calf tenderness and no pedal edema Psych mental status grossly normal, thought process normal, cooperative, affect normal, speech normal, activity/motor behavior normal, denies homicidal ideation and denies suicidal ideation Weight / BMI Weight Weight: 185 lb Body Mass Index (BMI) 31.7 ABG / Lab / Microbiology Data Result Diagrams: 07/07/22 16:40 07/06/22 17:05 Microbiology: Microbiology 07/06/22 15:05 Nasal Secretion SARS-CoV-2 Antigen (Rapid) - Final D/C Instructions Discharge Diet: No restrictions May resume sexual activity in: 4-6 weeks Call your doctor if your incision/area has: Continuous Slow Oozing, Sudden Increased Bleeding, Increased Pain/ Swelling, Increased Redness and Foul Smelling Discharge Please Follow Up With: Elsa Shaw DO When: Call [phone] to make an appointment with your doctor in 6 weeks. If you had elevated blood pressure or 4th degree laceration, you will need to be seen in 2 weeks. Meaningful Use Info Meaningful Use Diagnoses (Choose all that apply): None applicable Discharge Plan Admission Admit Date/Time: 07/06/22 15:40 Attending Provider: Elsa Shaw Primary Care Provider: Care Physician,Rosalie Primary Discharge Orders/Prescriptions Prescriptions: No Action prenat.vits,dorothy,qfn-egjp-maetr Tablet 1 tab PO DAILY Referrals / Follow Up: Care Physician,No Primary [Primary Care Provider] - Disposition Discharge Orders: Discharge Patient (Routine); Ordered 07/09/22 Ordered By: Dr. Elsa Sahw
[2022-07-09] MEDS: Labetalol 200 MG Tablet PO (10:18)
[2022-07-09 12:59] VITALS: BP 117/62; PULSE 84; RESP 14; TEMP 36.6
--- NOTE | 2022-07-13 12:53 | NURSING ---
Follow up phone call attempted, left voicemail.
--- NOTE | 2022-07-15 09:59 | NURSING ---
Patient returned call from follow up phone call attempt. Reports she feels really good , denies complications, but states she wants a appt for her baby, states the baby is tongue tied. Appt scheduled with [facility] for tomorrow at 4pm. Patient reports she was very satisfied with the care she received while here in the hospital.
== END 2022-07-09 14:02 | disposition home or self-care (01) | DRG 807 ==
LOC: WPOUT 15:41 → WP 15:41
PROVIDERS: Registered Nurse; Admitting Provider Obstetrics & Gynecology; Visit Provider Obstetrics & Gynecology
DX: O14.04 Mild to moderate pre-eclampsia, complicating childbirth (principal); Z37.0 Single live birth; O48.0 Post-term pregnancy; O70.0 First degree perineal laceration during delivery; Z3A.40 40 weeks gestation of pregnancy; Z87.891 Personal history of nicotine dependence
CPT/HCPCS: 59025; 59050; 82565; 82570; 84156; 84450; 84460; 84550; 85025; 85027; 86703; 86780; 86803; 86850; 86900; 86901; 87340; 87426; 87491; 87591; 99218; J7120; A4216; G0378; J2405

== ENCOUNTER → 2024-01-07 | Outpatient (CLI) | payer SELFPAY ==
[2024-01-11 00:07] LABS: Chlamydia By Nucleic Acid AMP Negative (Negative); Gonococcus By Nucleic Acid AMP Negative (Negative)
[2024-01-13 20:37] LABS: HPV Reflexed? NOT INDICATED
== END | disposition home or self-care (01) ==
PROVIDERS: Referring Provider Registered Nurse; Visit Provider Registered Nurse
DX: Z34.90 Encounter for supervision of normal pregnancy, unspecified, unspecified trimester (principal)
CPT/HCPCS: 87086; 87491; 87591; 88175; G0145

== ENCOUNTER → 2024-02-02 | Outpatient (CLI) | payer SELFPAY ==
[2024-02-02 11:35] LABS: Absolute Lymphocyte Count 2.55 X10^3/uL (0.83-4.51); Absolute Neutrophil Count 6.5 X10^3/uL (2.0-7.7); Basophil# 0.05 X10^3/uL; Basophil% 0.5 % (0-1); Eosinophil# 0.19 X10^3/uL; Hematocrit 36.6 % (37-47); Hemoglobin 12.4 g/dL (12.0-15.0); Lymphocyte # 2.55 X10^3/ul (0.83-4.51); Lymphocyte % 26.2 % (19-41); Mean Corp Hgb Conc 33.9 g/dL (32-36); Mean Corpuscular Hgb 30.2 pg (27.0-32.0); Mean Corpuscular Volume 89.3 fL (81-99); Mean Platelet Vol. 9.4 fl (6.2-12.0); Monocyte% 4.1 % (0-10); NRBC Flagged by Analyzer 0 % (0-5); Neutrophil % 66.9 % (47-70); Platelet Count 223 K/mm3 (150-450); RBC Distribution Width CV 12.5 % (11.6-14.6); RBC Distribution Width SD 40.6 fl (35.1-43.9); White Blood Count 9.7 K/mm3 (4.4-11.0)
[2024-02-02 11:52] LABS: AST(SGOT) 16 U/L (15-37); Alanine Aminotransfer ALT/SGPT 14 U/L (13-56); Albumin, Serum 3.6 g/dL (3.2-5.0); Alkaline Phosphatase 41 U/L (45-117); Anion Gap 4 (5-15); BUN 9 mg/dL (7-18); BUN/Creat Ratio 17.3 RATIO (10-20); Calcium,Total 8.8 mg/dL (8.5-10.1); Chloride 105 mmol/L (98-107); Creatinine, Serum 0.52 mg/dL (0.55-1.02); EST Glomerular Filtration Rate 153 mL/min (>60); Est Glom Filt Rate - Afr Amer 185 mL/min (>60); Globulin 3.7 g/dL (2.2-4.2); Glucose 92 mg/dL (74-106); Potassium 3.8 mmol/L (3.5-5.1); Protein, Total 7.3 g/dL (6.4-8.2); Sodium Level 136 mmol/L (136-145)
[2024-02-02 12:42] LABS: HIV - WCH Non-Reactive (Nonreactive); Hepatitis B Surface Antigen Non-Reactive (Nonreactive); Hepatitis C Antibody Non-Reactive (Nonreactive); Rubella IgG Non-Reactive (Nonreactive); Syphilis Antibodies Non-reactive
== END | disposition home or self-care (01) ==
LOC: PAVLAB 11:20
PROVIDERS: Registered Nurse; Referring Provider Nurse Practitioner Women's Health; Visit Provider Nurse Practitioner Women's Health
DX: Z34.90 Encounter for supervision of normal pregnancy, unspecified, unspecified trimester (principal); Z87.59 Personal history of other complications of pregnancy, childbirth and the puerperium
CPT/HCPCS: 36415; 80053; 85025; 86703; 86762; 86780; 86803; 86850; 86900; 86901; 87340

== ENCOUNTER → 2024-03-30 | Outpatient (CLI) | payer SELFPAY ==
--- NOTE | 2024-03-30 15:26 | US_ITS ---
STUDY: SECOND AND THIRD TRIMESTER OBSTETRICAL ULTRASOUND REASON FOR EXAM: Female, 23 years old anatomy LMP: 11/11/2023 TECHNIQUE: Transabdominal TECHNICAL QUALITY: Adequate. PRIOR ULTRASOUND: None. FINDINGS: There is a single intrauterine fetus. The fetus is in an transverse lie with the head on the maternal left side. There is demonstrated cardiac activity with a heart rate of 148 bpm. There is a normal amniotic fluid volume. The largest amniotic fluid pocket measures 4. cm. The amniotic fluid index (MACARIO) is cm. The placenta is posterior in location and is not low lying. There are Grade 0 placental changes. The cervix measures 4.0 cm in length. The bilateral adnexal regions are normal. BIOMETRY: BPD: 4.2 cm: 18 weeks, 5 days HC: 17.0 cm: 19 weeks, 4 days AC: 15.8 cm: 21 weeks, 0 days FL: 2.8 cm: 18 weeks, 5 days CI: 67.5 FL/BPD: 67.58 FL/HC: 16.67 FL/AC: 17.89 HC/AC: 1.07 age by current US: 19 weeks, 3 days. SANDRINE by current US: 08/21/2024. Estimated weight: 314 grams, +/- 47 grams, 35 %. age by prior US: weeks, days. SANDRINE by prior US: . Age by LMP: 20 weeks, 0 days. SANDRINE by LMP: 08/17/2024. ANATOMY: Gender: Male Cranium: Normal lateral ventricles. Normal choroid plexus. Normal cerebellum. Normal cisterna magna. Normal face, nose and lips. Chest: Normal 4-chamber heart. Abdomen/Pelvis: Normal diaphragm. Normal stomach. Normal abdominal wall. Normal cord insertion. Normal 3 vessel cord. Normal kidneys. Normal bladder. Spine: Normal cervical spine. Normal thoracic spine. Normal lumbar spine. Normal sacrum. Extremities: Normal bilateral upper extremities. Normal bilateral lower extremities. US/OB Anatomy w/ Transvaginal IMPRESSION: Living intrauterine of 19 weeks 3 days as described above. Electronically Signed: Marcus Bellamy MD at 17:44 EDT ,
== END | disposition home or self-care (01) ==
LOC: US 15:24
PROVIDERS: Referring Provider Nurse Practitioner Women's Health; Visit Provider Nurse Practitioner Women's Health
DX: Z34.92 Encounter for supervision of normal pregnancy, unspecified, second trimester (principal); Z3A.11 11 weeks gestation of pregnancy
CPT/HCPCS: 76805; 76817

== ENCOUNTER → 2024-05-24 | Outpatient (CLI) | payer SELFPAY ==
[2024-05-24 09:32] LABS: Absolute Lymphocyte Count 1.55 X10^3/uL (0.83-4.51); Absolute Neutrophil Count 5.4 X10^3/uL (2.0-7.7); Basophil# 0.04 X10^3/uL; Basophil% 0.5 % (0-1); Eosinophil# 0.22 X10^3/uL; Eosinophils% 2.9 % (0-5); Hematocrit 34.4 % (37-47); Hemoglobin 11.8 g/dL (12.0-15.0); Lymphocyte # 1.55 X10^3/ul (0.83-4.51); Lymphocyte % 20.1 % (19-41); Mean Corp Hgb Conc 34.3 g/dL (32-36); Mean Corpuscular Hgb 31.6 pg (27.0-32.0); Mean Platelet Vol. 9.4 fl (6.2-12.0); Monocyte# 0.45 X10^3/uL; Monocyte% 5.8 % (0-10); NRBC Flagged by Analyzer 0 % (0-5); Neutrophil # 5.39 X10^3/uL (2.7-7.7); Neutrophil % 70.1 % (47-70); Platelet Count 176 K/mm3 (150-450); RBC Distribution Width CV 12.6 % (11.6-14.6); RBC Distribution Width SD 42.3 fl (35.1-43.9); Red Blood Count 3.74 M/mm3 (4.2-5.4); White Blood Count 7.7 K/mm3 (4.4-11.0)
[2024-05-24 09:51] LABS: Glucose Challenge Gest 1H 50g 126 mg/dL (70-140)
[2024-05-24 10:23] LABS: HIV - WCH Non-Reactive (Nonreactive); Syphilis Antibodies Non-reactive
== END | disposition home or self-care (01) ==
LOC: PAVLAB 09:03
PROVIDERS: Referring Provider Advanced Practice Midwife; Visit Provider Advanced Practice Midwife
DX: Z34.82 Encounter for supervision of other normal pregnancy, second trimester (principal)
CPT/HCPCS: 36415; 82950; 85025; 86703; 86780

== ENCOUNTER 2024-06-19 12:47 | Outpatient (CLI) | payer SELFPAY ==
[2024-06-19] VITALS (11 sets, daily range): BP systolic 128; BP diastolic 82; PULSE 89–112; TEMP 36.8; O2SAT 94–100; BMI 31.8
--- NOTE | 2024-06-19 13:39 | EKG12_ITS ---
Test Reason : chest pressure, sob at rest Blood Pressure : / mmHG Vent. Rate : 068 BPM Atrial Rate : 068 BPM P-R Int : 130 ms QRS Dur : 090 ms QT Int : 396 ms P-R-T Axes : 035 026 011 degrees QTc Int : 421 ms Normal sinus rhythm Normal ECG Confirmed by EMI DOUGLAS, KELSEY ([id number]), editorial clerk NORIS DOWELL ([id number]) on 06/20/2024 8:42:51 AM Referred By: Farida Butler Confirmed By:KELSEY MIDDLETON MD
[2024-06-19] MEDS: Lactated Ringers 1,000 ML 999 ML IV (14:07)
[2024-06-19 14:16] LABS: Absolute Lymphocyte Count 2.15 X10^3/uL (0.83-4.51); Absolute Neutrophil Count 7.2 X10^3/uL (2.0-7.7); Basophil# 0.03 X10^3/uL; Basophil% 0.3 % (0-1); Eosinophil# 0.11 X10^3/uL; Eosinophils% 1.1 % (0-5); Hematocrit 35.7 % (37-47); Hemoglobin 11.9 g/dL (12.0-15.0); Lymphocyte # 2.15 X10^3/ul (0.83-4.51); Lymphocyte % 21.4 % (19-41); Mean Corp Hgb Conc 33.3 g/dL (32-36); Mean Corpuscular Hgb 30.7 pg (27.0-32.0); Mean Corpuscular Volume 92.2 fL (81-99); Mean Platelet Vol. 10.2 fl (6.2-12.0); NRBC Flagged by Analyzer 0 % (0-5); Neutrophil # 7.18 X10^3/uL (2.7-7.7); Neutrophil % 71.6 % (47-70); Platelet Count 190 K/mm3 (150-450); RBC Distribution Width CV 12.7 % (11.6-14.6); RBC Distribution Width SD 42.6 fl (35.1-43.9); Red Blood Count 3.87 M/mm3 (4.2-5.4)
[2024-06-19 14:32] LABS: ALB/GLOB Ratio 0.7 RATIO (0.9-2.4); AST(SGOT) 16 U/L (15-37); Alanine Aminotransfer ALT/SGPT 13 U/L (13-56); Albumin, Serum 2.8 g/dL (3.2-5.0); Alkaline Phosphatase 100 U/L (45-117); Anion Gap 9 (5-15); BUN 4 mg/dL (7-18); BUN/Creat Ratio 9.5 RATIO (10-20); Calcium,Total 8.9 mg/dL (8.5-10.1); Chloride 106 mmol/L (98-107); Creatinine, Serum 0.42 mg/dL (0.55-1.02); EST Glomerular Filtration Rate 195 mL/min (>60); Est Glom Filt Rate - Afr Amer 236 mL/min (>60); Glucose 91 mg/dL (74-106); Potassium 3.6 mmol/L (3.5-5.1); Protein, Total 6.8 g/dL (6.4-8.2); Sodium Level 138 mmol/L (136-145)
--- NOTE | 2024-06-19 18:47 | OB.TRI.PN_ITS ---
Progress Notes Date of Service: 06/19/24 Progress Note: Patient presents for triage evaluation secondary to shortness of breath FHT: 145 Moderate variability reactive no decelerations category I tracing [place]: no Contractions Assessment and plan: Reactive NST, reassuring status patient discharged to ER for SOB work up . See problem list details for additional plan information. Laboratory Studies: Laboratory Tests 06/19/24 Range/Units 14:00 WBC 10.0 (4.4-11.0) K/mm3 RBC 3.87 L (4.2-5.4) M/mm3 Hgb 11.9 L (12.0-15.0) g/dL Hct 35.7 L (37-47) % MCV 92.2 (81-99) fL MCH 30.7 (27.0-32.0) pg MCHC 33.3 (32-36) g/dL RDW Std Deviation 42.6 (35.1-43.9) fl RDW Coeff of [place] 12.7 (11.6-14.6) % Plt Count 190 (150-450) K/mm3 MPV 10.2 (6.2-12.0) fl Immature Gran % (Auto) 0.600 (0.0-0.9) % Neut % (Auto) 71.6 H (47-70) % Lymph % (Auto) 21.4 (19-41) % [place] % (Auto) 5.0 (0-10) % Eos % (Auto) 1.1 (0-5) % Baso % (Auto) 0.3 (0-1) % Absolute Neuts (auto) 7.2 (2.0-7.7) X10^3/uL Absolute Lymphs (auto) 2.15 (0.83-4.51) X10^3/uL Nucleated RBC % 0 (0-5) % Sodium 138 (136-145) mmol/L Potassium 3.6 (3.5-5.1) mmol/L Chloride 106 (98-107) mmol/L Carbon Dioxide 23.0 (21.0-32.0) mmol/L Anion Gap 9 (5-15) BUN 4 L (7-18) mg/dL Creatinine 0.42 L (0.55-1.02) mg/dL Estim Creat Clear Calc 207.20 ml/min Est GFR (MDRD) Af Amer 236 (>60) mL/min Est GFR (MDRD) Non-Af 195 (>60) mL/min BUN/Creatinine Ratio 9.5 L (10-20) RATIO Glucose 91 (74-106) mg/dL Calcium 8.9 (8.5-10.1) mg/dL Total Bilirubin 0.30 (0.20-1.00) mg/dL AST 16 (15-37) U/L ALT 13 (13-56) U/L Alkaline Phosphatase 100 (45-117) U/L Total Protein 6.8 (6.4-8.2) g/dL Albumin 2.8 L (3.2-5.0) g/dL Globulin 4.0 (2.2-4.2) g/dL Albumin/Globulin Ratio 0.7 L (0.9-2.4) RATIO Charges/Coding Multi Select Codes Urinary/Genital Urinary/Genital CPT Codes: 51361-21 non-stress test Interp Assessment & Plan (1) Shortness of breath: (2) Rubella non-immune status, antepartum: COMMENT: MMR pp (3) Supervision of normal : QUALIFIERS: Normal : other normal Trimester: second trimester Qualified Code(s): Z34.82 - Encounter for supervision of other normal , second trimester COMMENT: PRR, , SANDRINE 08/17/24, PC: Blayne, : Ran (4) : QUALIFIERS: Weeks of gestation: 29 weeks Qualified Code(s): Z3A.29 - 29 weeks gestation of COMMENT: normal anatomy, Discussed genetic and carrier testing- declines. (5) H/O pre-eclampsia: COMMENT: baseline PEC labs obtained with nob. (6) ASCUS of cervix with negative high risk HPV: COMMENT: repeated pap 01/06
== END 2024-06-19 14:45 | disposition home or self-care (01) ==
LOC: WPOUT 12:53 → WP 12:55
PROVIDERS: Referring Provider Advanced Practice Midwife; Visit Provider Advanced Practice Midwife
DX: O99.891 Other specified diseases and conditions complicating pregnancy (principal); R06.02 Shortness of breath; Z3A.29 29 weeks gestation of pregnancy; R87.610 Atypical squamous cells of undetermined significance on cytologic smear of cervix (ASC-US)
CPT/HCPCS: 96360; 36415; 59025; 59050; 80053; 85025; 93005; 99221; J7120; G0378

== ENCOUNTER 2024-06-19 14:56 | Emergency (ER) | payer SELFPAY ==
[2024-06-19 14:56] VITALS: BP 132/71; PULSE 82; RESP 16; TEMP 36; O2SAT 97; BMI 31.8
--- NOTE | 2024-06-19 15:58 | EDS_ITS ---
HPI History of Present Illness Chief Complaint: Shortness of Breath Narrative Narrative: Chief complaint and HPI: Shortness of breath. 23-year-old female who is 31 weeks who is G2, P1 presents for evaluation of shortness of breath. Patient states since the weekend she has been having intermittent shortness of breath. She states that it is worse with exertion and talking. She states she noted she had a high heart as well as intermittent headaches over the weekend which wor ried her. She states her heart rate was 109. Patient states that she had preeclampsia during delivery with her first child. It was a vaginal delivery. Patient states that she follows with Dr. Shaw. She has had no complications with this . Patient went over to the woman's clinic where she had some basic labs drawn. They cleared her from their standpoint and sent the patient to the emergency department for further evaluation. Patient denies any fever, chills, URI symptoms, cough, chest pain, abdominal pain, nausea, vomiting. She states she has been eating and drinking well. She states that she has good movement. Denies any dysuria or hematuria. Review of systems: See HPI Medications: As listed on the chart Allergies: As listed on the chart PFSH: Per chart Vital signs: As listed on the chart. Reviewed. Physical exam: Gen: A&O x3, NAD Head: Normocephalic, atraumatic Eyes: No sclera icterus, conjunctiva clear, PERRL ENT: Moist mucous membranes Neck: Trachea midline, No JVD CV: RRR, no murmurs, no pitting peripheral edema Resp: Lungs CTA BL, no w/r/c GI: Abd soft, gravid uterus, non-tender, no r/r/g Musc: Full ROM, no deformity Skin: Warm, dry Neuro: Alert, oriented, grossly intact, sensation intact Psych: Cooperative, appropriate mood and affect [facility] Medical History care following vaginal delivery Pre-eclampsia Spontaneous onset of labor SROM (spontaneous rupture of membranes) Elevated systolic blood pressure reading without diagnosis of hypertension ASCUS of cervix with negative high risk HPV Rubella non-immune status, antepartum Supervision of normal first Home Medications ?Medication ?Instructions ?Recorded ?Last Taken ?Type prenat.vits,dorothy,nkr-pozs-abcqn 1 tab PO DAILY 11/04/21 07/06/22 11:00 History cephalexin 500 mg capsule 500 mg PO BID 10 days #20 caps 06/19/24 Unknown Rx Allergy/AdvReac Type Severity Reaction Status Date / Time No Known Allergies Allergy Verified 06/19/24 14:59 Family History Father Diabetes controlled with oral med Social History adopted: No household members: spouse and children number of children: 1 current occupational status: unemployed current occupation: [employer] current occupational exposures/hazards: No pets and animals: No history of recent travel: No sexually active: Yes Smoking Status: Former smoker how long ago did patient quit smokin-6 years ago as of 2023 alcohol intake: never substance use type: does not use well-balanced diet: daily or most days caffeine: Yes eating out: rarely or never during the past year weight has: increased > 10 lbs what type of physical activity do you participate in: walking frequency: 1-2 times per week duration: 30-45 minutes/day bright/uatsdin: [employer] seatbelt use: always do you feel safe at home: Yes additional social history: : Ran - [employer] EXAM Physical Exam Const Vital Signs: 06/19/24 14:56 06/19/24 15:47 06/19/24 15:47 Temperature 96.8 F L Temperature Source Temporal Pulse Rate 82 Respiratory Rate 16 Respiratory Effort Respiratory Depth Respiratory Pattern Blood Pressure 132/71 H Blood Pressure Mean 91 Pulse Ox 97 Oxygen Delivery Method Room Air Room Air Room Air 06/19/24 16:42 06/19/24 16:56 06/19/24 18:00 Temperature Temperature Source Pulse Rate 102 H 103 H Respiratory Rate 18 16 Respiratory Effort Short of Breath Respiratory Depth Normal Respiratory Pattern Normal Blood Pressure 122/61 H 119/58 L Blood Pressure Mean 81 78 Pulse Ox 99 99 Oxygen Delivery Method Room Air Room Air 06/19/24 19:21 Temperature 98.1 F Temperature Source Pulse Rate 82 Respiratory Rate 16 Respiratory Effort Respiratory Depth Respiratory Pattern Blood Pressure 122/71 H Blood Pressure Mean 88 Pulse Ox 99 Oxygen Delivery Method MDM MDM MDM Narrative Medical decision making narrative: 23-year-old female who is 31 weeks and presents for evaluation of shortness of breath. Denies any associated symptoms such as chest pain or URI type symptoms. States she did have a headache over the weekend that is since resolved. Patient was seen at the woman's clinic prior to arrival here. At that time she had a CBC with a white count of 10, hemoglobin 11.9, platelets 190. CMP without electrolyte abnormality or transaminitis. Differential diagnosis includes but is not limited to side effects from , pneumonia, viral illness, PE, cardiomyopathy, preeclampsia. Suspect likely ACS. On arrival here, patient has mildly elevated blood pressure of 132/71. No tachycardia. She is afebrile on room air. Cardiac/respiratory workup ordered. LDH unremarkable. Troponin unremarkable. BNP unremarkable. D-dimer elevated at 0.95. Patient was educated on the risks and benefits to CTA chest to assess for PE. She consented CTA chest. CTA chest unremarkable without PE or dissection. UA shows ketones. Urine is cloudy with 1+ bacteria. Given patient is , will treat for UTI. Urine culture sent. Patient placed on Keflex. COVID, flu, RSV negative. At this point in time there is no clear etiology for patient's shortness of breath, I suspect that this may be secondary to symptomatic . The on-call provider for Dr. Shaw was contacted and patient was discussed. They agree with discharge home. They will follow-up with the patient. Patient was updated of all her results and confirmed understand the plan. She was told to follow-up with her [facility] especially about her urine. She confirmed understanding EKG: Interpreted by me/EM physician: EKG shows normal sinus rhythm without any acute ischemic changes. Heart rate 68. Diagnostic: Interpreted by me/EM physician: Chest x-ray without pneumonia, effusion, cardiomegaly, pneumothorax impression Impression: 1. Shortness of breath in 2. Elevated D-dimer 3. Bacteriuria in Lab Data Labs: Laboratory Results - last 24 hr 06/19/24 06/19/24 06/19/24 16:04 16:12 16:37 D-Dimer Quant (PE/DVT) 0.95 H* Lactate Dehydrogenase 174 Troponin I High Sens < 3 L B-Natriuretic Peptide 33.6 Urine Color Straw Urine Clarity Sl. Cloudy Urine pH 8.0 Ur Specific [place] 1.010 Urine Protein Negative Urine Glucose (UA) Normal Urine Ketones 5 H Urine Occult Blood Negative Urine Nitrite Negative Urine Bilirubin Negative Urine Urobilinogen Normal Ur Leukocyte Esterase Negative Urine RBC 0 SEEN Urine WBC 0-5 SEEN Ur Squamous Epith Cells 5-10 SEEN Urine Bacteria 1+ Urine Mucus 0 SEEN Radiography Diagnostic Testing: Clinical Impression(s) from Imaging Studies Chest X-Ray 06/19/24 16:35 IMPRESSION: Normal x-ray examination of the chest. Electronically Signed: Hrebert Brandt MD at 16:54 EDT , Chest CTA 06/19/24 17:15 IMPRESSION: Normal CTA chest examination, without a demonstrated pulmonary embolism or arterial dissection. Electronically Signed: Herbert Brandt MD at 18:31 EDT , Discharge Plan Triage Chief Complaint: Shortness of Breath Other Complaint: Back ED Provider: Oneil Brday Dx/Rx/DC Orders Clinical Impression: Shortness of breath, , UTI (urinary tract infection) Instructions: UTIs Understanding, ED Dyspnea Prescriptions: New cephalexin 500 mg capsule 500 mg PO BID 10 Days Qty: 20 0RF No Action prenat.vits,dorothy,hcn-ojjc-dlxgo Tablet 1 tab PO DAILY Primary Care Provider: Care Physician,No Primary Referrals: Elsa Shaw DO [Med Staff - Active Staff] - 3-5 Days Care Physician,No Primary [Primary Care Provider] - Activity Restrictions/Additional Instructions: Follow-up with your primary care as well as [facility] physician as soon as possible Print Language: Wallisian Disposition Disposition: Home, Self Care Discharge Date/Time: 06/19/24 19:22
[2024-06-19] MEDS: 0.9% Normal Saline (500mL Bag) 500 ML 999 ML IV ×2 (16:03→17:39)
[2024-06-19 16:23] LABS: Mucous, Urine 0 SEEN /hpf (<or=2+); Red Blood Cells-Urine 0 SEEN /hpf (0-5)
[2024-06-19 16:24] LABS: Color, Urine Straw (Yellow); Glucose, Dipstick Normal (Normal); Ketone-Dipstick 5 mg/dl (Negative); Leukocyte Esterase-Dipstick Negative /ul (Negative); Nitrite-Dipstick Negative (Negative); Occult Blood-Urine Negative /ul (Negative); Protein-Dipstick Negative (Negative); Urine Bilirubin Dipstick Negative (Negative); Urine Clarity Sl. Cloudy (Clear); Urine Urobilinogen Normal (Normal)
--- NOTE | 2024-06-19 16:35 | RAD_ITS ---
STUDY: X-RAY CHEST REASON FOR EXAM: Female, 23 years old. Shortness of breath, TECHNIQUE: PA and lateral COMPARISON: None. FINDINGS: The lungs are clear and expanded. There is no demonstrated pleural abnormality. Normal size heart. Normal mediastinum and silvia. Normal visualized pulmonary arteries. Normal visualized aortic arch and descending thoracic aorta. Normal visualized thoracic spine. Normal visualized ribs, clavicles, and shoulders. There is no demonstrated abnormality of the visualized soft tissue structures of the upper abdomen. RAD/Chest PA and Lateral IMPRESSION: Normal x-ray examination of the chest. Electronically Signed: Herbert Brandt MD at 16:54 EDT ,
[2024-06-19 16:42] LABS: LDH 174 U/L (84-246); Troponin-I HS < 3 pg/mL (3.0-54.0)
[2024-06-19 16:45] LABS: Bacteria 1+ /hpf (None Seen); Squamous Epithelial Cells - UA 5-10 SEEN /hpf (5-10)
[2024-06-19 16:46] LABS: White Blood Cells 0-5 SEEN /hpf (0-5)
[2024-06-19 16:56] VITALS: BP 122/61; PULSE 102; RESP 18; O2SAT 99
[2024-06-19 17:00] LABS: D-Dimer Quantitative (DVT/PE) 0.95 FEU/ug/m (0.27-0.49)
[2024-06-19 17:00] LABS: BNP,B-Type NATRIURETIC PEPTIDE 33.6 pg/mL (0-100)
--- NOTE | 2024-06-19 17:15 | CT_ITS ---
STUDY: CTA CHEST REASON FOR EXAM: Female, 23 years old. Elevated dimer, , SOB, r/o PE RADIATION DOSAGE (If Supplied By Facility): CTDIvol = ( 11.82 ) mGy, DLP = ( 371.00 ) mGycm TECHNIQUE: The examination was performed with the intravenous administration of IV 100mL Isovue-370. Post-processing of the angiographic images was performed, with multiplanar reformation and 3D reconstruction. Individualized dose optimization techniques were used for this CT. COMPARISON: None. FINDINGS: Normal enhancement of the main pulmonary artery and right and left pulmonary arteries. Normal enhancement of the bilateral peripheral pulmonary arteries. There is no demonstrated pulmonary embolism. Normal thoracic aorta and visualized great vessels. There is no demonstrated aortic dissection. Normal heart and pericardium. Normal mediastinum. Normal hilar regions. Normal visualized trachea and bronchi. The lungs are well expanded. Normal pulmonary parenchyma. Normal pleura. Normal chest wall structures. Normal osseous structures. Normal visualized upper abdomen. CT/CTA Chest W/WO Contrast IMPRESSION: Normal CTA chest examination, without a demonstrated pulmonary embolism or arterial dissection. Electronically Signed: Herbert Brandt MD at 18:31 EDT ,
[2024-06-19 18:00] VITALS: BP 119/58; PULSE 103; RESP 16; O2SAT 99
[2024-06-19 19:21] VITALS: BP 122/71; PULSE 82; RESP 16; TEMP 36.7; O2SAT 99
== END 2024-06-19 19:22 | disposition home or self-care (01) ==
PROVIDERS: Emergency Provider Surgery; Visit Provider Surgery
DX: O23.43 Unspecified infection of urinary tract in pregnancy, third trimester (principal); Z87.891 Personal history of nicotine dependence; R06.02 Shortness of breath; Z3A.31 31 weeks gestation of pregnancy; O99.891 Other specified diseases and conditions complicating pregnancy; R82.71 Bacteriuria; R79.1 Abnormal coagulation profile
CPT/HCPCS: 71046; 71275; 81001; 83615; 83880; 84484; 85379; 87631; 96360; 96361; 99285; J7040; Q9967; A4216

== ENCOUNTER → 2024-07-19 | Outpatient (CLI) | payer SELFPAY | END | disposition home or self-care (01) | PROVIDERS: Referring Provider Advanced Practice Midwife; Visit Provider Advanced Practice Midwife | DX: Z34.82 Encounter for supervision of other normal pregnancy, second trimester (principal) | CPT/HCPCS: 87081 ==

== ENCOUNTER → 2024-07-26 | Outpatient (CLI) | payer SELFPAY | END | disposition home or self-care (01) | LOC: OPUS 15:24 | PROVIDERS: Referring Provider Advanced Practice Midwife; Visit Provider Advanced Practice Midwife | DX: O26.849 Uterine size-date discrepancy, unspecified trimester (principal); Z3A.00 Weeks of gestation of pregnancy not specified | CPT/HCPCS: 76816 ==

== ENCOUNTER → 2024-07-31 | Outpatient (CLI) | payer SELFPAY ==
[2024-07-31 10:24] LABS: Glucose Challenge Gest 1H 50g 129 mg/dL (70-140)
== END | disposition home or self-care (01) ==
PROVIDERS: Referring Provider Obstetrics & Gynecology; Visit Provider Obstetrics & Gynecology
DX: O26.849 Uterine size-date discrepancy, unspecified trimester (principal); Z3A.00 Weeks of gestation of pregnancy not specified
CPT/HCPCS: 36415; 82950

== ENCOUNTER 2024-08-04 08:14 | Inpatient (IN) | payer SELFPAY ==
[2024-08-04] VITALS (63 sets, daily range): BP systolic 106–159; BP diastolic 52–97; PULSE 53–118; RESP 16; TEMP 36.6–38.3; O2SAT 75–100; BMI 33.7
[2024-08-04 08:32] LABS: ROM Internal Control Test YES-OK TO RESULT pt. (Internal QC)
[2024-08-04 08:33] LABS: ROM Patient Test POSITIVE (Negative); Record Kit Lot#, ROM+ K1972
[2024-08-04 08:53] LABS: Absolute Lymphocyte Count 1.86 X10^3/uL (0.83-4.51); Absolute Neutrophil Count 9.7 X10^3/uL (2.0-7.7); Basophil# 0.04 X10^3/uL; Basophil% 0.3 % (0-1); Eosinophil# 0.29 X10^3/uL; Eosinophils% 2.3 % (0-5); Hematocrit 35.6 % (37-47); Hemoglobin 12.3 g/dL (12.0-15.0); Lymphocyte # 1.86 X10^3/ul (0.83-4.51); Lymphocyte % 14.6 % (19-41); Mean Corp Hgb Conc 34.6 g/dL (32-36); Mean Corpuscular Hgb 31.1 pg (27.0-32.0); Mean Corpuscular Volume 89.9 fL (81-99); Mean Platelet Vol. 10.2 fl (6.2-12.0); Monocyte# 0.81 X10^3/uL; Monocyte% 6.4 % (0-10); NRBC Flagged by Analyzer 0 % (0-5); Neutrophil # 9.66 X10^3/uL (2.7-7.7); Platelet Count 226 K/mm3 (150-450); RBC Distribution Width CV 12.3 % (11.6-14.6); RBC Distribution Width SD 40.3 fl (35.1-43.9); Red Blood Count 3.96 M/mm3 (4.2-5.4); White Blood Count 12.7 K/mm3 (4.4-11.0)
--- NOTE | 2024-08-04 09:03 | HP.PCM.OB_ITS ---
HPI - General General Date of Admission: 08/04/24 Date of Service: 08/04/24 HPI Narrative SALMA EDWARDS, is a 23 F 38.1 weeks who presents in active labor. Unsure of SROM had some consistent vaginal leaking since 2099 yesterday. ROM+, admission orders given. Confirmed vertex position on US. Maternal Data Information SANDRINE Calculator Estimated Delivery Date Method Current WG Current Estimate 08/17/24 LMP (Certain) 38w 1d PFSH PFSH Medical History (Updated 08/04/24 @ 09:09 by Farida Butler CNM) SROM (spontaneous rupture of membranes) High blood pressure (07/07/22) Breast lump (07/05/21) care following vaginal delivery Pre-eclampsia Spontaneous onset of labor Elevated systolic blood pressure reading without diagnosis of hypertension ASCUS of cervix with negative high risk HPV Rubella non-immune status, antepartum Supervision of normal first Home Medications ?Medication ?Instructions ?Recorded ?Last Taken ?Type prenat.vits,dorothy,[id number] 1 tab PO DAILY 11/04/21 08/03/24 08:00 History 1 TAB Allergy/AdvReac Type Severity Reaction Status Date / Time No Known Allergies Allergy Verified 08/04/24 08:36 Family History Father Diabetes controlled with oral med Social History adopted: No household members: spouse and children number of children: 1 current occupational status: unemployed current occupation: [employer] current occupational exposures/hazards: No pets and animals: No history of recent travel: No sexually active: Yes Smoking Status: Former smoker how long ago did patient quit smokin-6 years ago as of 2023 alcohol intake: never substance use type: does not use well-balanced diet: daily or most days caffeine: Yes eating out: rarely or never during the past year weight has: increased > 10 lbs what type of physical activity do you participate in: walking frequency: 1-2 times per week duration: 30-45 minutes/day bright/anabaptist: Sikh seatbelt use: always do you feel safe at home: Yes additional social history: : Ran - Deb History 2 Elective abortions Hx Para 1 Spontaneous abortions Hx # Term Pregnancies 1 Ectopic pregnancies Hx # Pregnancies Multiple births # of living children 1 Past Pregnancies Del. Date Name GA/Weeks Outcome Route Bth Weight Infant Gen Labor Lgth Anesthesia Del Sanjayatn Provider FOB 07/07/22 Shelby 40 live - full term 8lbs 1oz Female ep idural [facility] Elsa Pal Delivery Date: 07/07/22 Last Updated by: Hilda Castano see problem list for complications, and Pre-eclampsia Visit Details Expected Delivery Route/Plan Labor Preferences- CB/BF classes: [] labor support person: [] labor intervention preferences: [] pain management options preferred: [] cut cord/dad catch: [] : [] PP control planned: [] discussed possible routes of delivery and associated risks: [] special requests: [] Plans Covid status: [] Flu vaccine: [] Tdap vaccine: [] Rhogam: [] LARC form signed: [] Problem list reviewed and updated with the most current plan of care details and appropriate orders placed. Relevant counseling for the gestational age provided. Continue routine care and follow up unless otherwise noted in visit notes/problem list details OB Flowsheet Initial Weight: 139 lb Date -?-?-?-?-?-?-?-?-?-?-?-?- EGA Weight BP Urine Prot -?-?-?-?-?-?-?-?-?-?-?--?- Glucose FHR FuHt Pres Dilation -?-?-?-?-?-?-?-?-?-?-?-?- Effaced St Visit Note 01/07/24 -?-?-?-?-?-?-?-?-?-?-?-?- 8w 1d 139 lb 8 oz (+8 oz) 128/81 -?-?-?-?-?-?-?-?-?-?-?-?- 148 -?-?-?-?-?-?-?-?-?-?-?-?- LC- CRL con with LMP. declines nipt. CMP for hx of PEC and to add baby asa at 12 weeks. 02/02/24 -?-?-?-?-?-?-?-?-?-?-?-?- 11w 6d 144 lb (+5 lb) 112/72 Negative -?-?-?-?-?-?-?-?-?-?-?-?- Negative 157 -?-?-?-?-?-?-?-?-?-?-?-?- No VB. Nausea im proved with Vit B6. Anatomy US ordered. Brief US to confirm FHT. PN labs today 03/09/24 -?-?-?-?-?-?-?-?-?-?-?-?- 17w 0d 154 lb (+15 lb) 154 lb (+15 lb) 122/75 122/75 Trace -?-?-?-?-?-?-?-?-?-?-?-?- Negative 140 -?-?-?-?-?-?-?-?-?-?-?-?- kw-no vb/crampin g. possible flutters. US on 03/30. baby asa recommended 04/06/24 -?-?-?-?-?-?-?-?-?-?-?-?- 21w 0d 161 lb (+22 lb) 108/71 Trace -?-?-?-?-?-?-?-?-?-?-?-?- Negative 135 -?-?-?-?-?-?-?-?-?-?-?-?- kw- no vb/lof/ct x. good fm. normal anatomy. 05/03/24 -?-?-?-?-?-?-?-?-?-?-?-?- 24w 6d 166 lb 8 oz (+27 lb 8 oz) 125/75 Negative -?-?-?-?-?-?-?-?-?-?-?-?- Negative 150 -?-?-?-?-?-?-?-?-?-?-?-?- KW- no vb/lof/ct x. good fm. had fall on wednesday and fractured foot. 28 week labs reviewed 05/24/24 -?-?-?-?-?-?-?-?-?-?-?-?- 27w 6d 175 lb (+36 lb) 117/74 Negative -?-?-?-?-?-?-?-?-?-?-?-?- Negative 136 27 -?-?-?-?-?-?-?-?-?-?-?-?- for SM: No VB , LOF. Good FM. 28 wk labs pending 06/07/24 -?-?-?-?-?-?-?-?-?-?-?-?- 29w 6d 180 lb (+41 lb) 107/69 Trace -?-?-?-?-?-?-?-?-?-?-?-?- Negative 140 31 Cephalic -?-?-?-?-?-?-?-?-?-?-?-?- KW- no vb/lof/ct x. good fm. 28 week labs normal. tdap declines. LARC done. 06/21/24 -?-?-?-?-?-?-?-?-?-?-?-?- 31w 6d 183 lb (+44 lb) 112/73 Trace -?-?-?-?-?-?-?-?-?-?-?-?- Negative 130 32 Cephalic -?-?-?-?-?-?-?-?-?-?-?-?- kw- no vb/lof/re g ctx. good fm. In ER for SOB-resp testing neg. did show UTI and was given Rx. has not started yet. encouraged to start UTI due to sx. 07/05/24 -?-?-?-?-?-?-?-?-?-?-?-?- 33w 6d 188 lb (+49 lb) 113/74 Negative -?-?-?-?-?-?-?-?-?-?-?-?- Negative 130 34 Cephalic -?-?-?-?-?-?-?-?-?-?-?-?- kw- no vb/lof/ct x. good fm. no concerns today. 07/19/24 -?-?-?-?-?-?-?-?-?-?-?-?- 35w 6d 191 lb (+52 lb) 125/78 -?-?-?-?-?-?-?-?-?-?-?-?- 140 39 Cephalic 3 -?-?-?-?-?-?-?-?-?-?-?-?- 60 -2 KW- no vb/ lof/reg ctx. good fm. Growth US ordered with [facility], pt declined MFM. GBS today. 07/25/24 -?-?-?-?-?-?-?-?-?-?-?-?- 36w 5d Negative -?-?-?-?-?-?-?-?-?-?-?-?- Negative 140 40 Cephalic 3 .5 -?-?-?-?-?-?-?-?-?-?-?-?- 80 -2 KW- no vb/ lof/ctx. some concerns with decreased movement. NST today to call today for growth US. rest of appts in [place] 07/31/24 -?-?-?-?-?-?-?-?-?-?-?-?- 37w 4d 194 lb 4 oz (+55 lb 4 oz) 121/76 Negative -?-?-?-?-?-?-?-?-?-?-?-?- Negative 147 42 Cephalic 3 -?-?-?-?-?-?-?-?-?-?-?-?- 80 -2 JV- head i s ballotable today. repeating glucose test. baby is estimated over 8 pounds today and estimated over 10 pounds by delivery. will call with glucola results. NST FHR Rate Baby A Baseline: 130 Variability:: Moderate Accelerations:: 15 x 15 Decelerations:: None NST Reactive:: Yes Uterine Activity:: q3-4 minutes ROS Constitutional Constitutional: Denies change in weight, fatigue, fever(s), headache(s), poor appetite or weakness Eyes Eyes: Denies blurry vision, change in vision, floaters, seeing flashes or spots in vision ENT HEENT: Denies dizziness, headache(s), loss taste/smell or sore throat Cardiovascular Cardiovascular: Denies chest pain, dizziness, dyspnea, irregular heart rhythm, lightheadedness, palpitations or rapid heart rate Respiratory/Chest Respiratory/Chest: Denies change in mental status, chest tightness, cough, dyspnea or breast pain Gastrointestinal Gastrointestinal: Denies anorexia, chewing difficulty, constipation, diarrhea or weight changes Genitourinary Genitourinary: Denies difficulty urinating, dysuria, flank pain, genital pain, urinary frequency or urinary urgency Musculoskeletal Musculoskeletal: Denies back pain, difficulty walking, extremity pain, joint pain, muscle cramps or muscle weakness Integumentary Integumentary: Denies lesions or unusual bruising Neurologic Neurologic: Denies abnormal movements, abnormal speech, dizziness, numbness, seizure-like activity, syncope or weakness Psychiatric Psychiatric: Denies behavioral changes, change in appetite, confusion, depression, homicidal ideation, suicidal ideation or suicidal thoughts Endocrine Endocrinology: Denies excessive sweating, polydipsia or polyuria Hematologic/Lymphatic Hematologic/Lymphatic: Denies anemia Allergic/Immunologic Allergic/Immunologic: Denies itchy eyes, lip swelling, throat swelling, tongue swelling or wheezing Vital Signs Vital Signs Vital Signs: 08/04/24 08:21 08/04/24 08:21 08/04/24 08:21 Temperature Temperature Source Temporal Pulse Rate 104 H Respiratory Rate Blood Pressure 138/82 H BP Systolic 138 BP Diastolic 82 Pulse Ox 08/04/24 08:21 08/04/24 08:21 08/04/24 08:21 Temperature Temperature Source Pulse Rate 105 H Respiratory Rate 16 Blood Pressure BP Systolic BP Diastolic Pulse Ox 97 08/04/24 08:21 Temperature 99.0 F Temperature Source Pulse Rate Respiratory Rate Blood Pressure BP Systolic BP Diastolic Pulse Ox Weight Weight: 190 lb 11.198 oz Body Mass Index (BMI) 33.7 Physical Exam Const alert, oriented x3 and no apparent distress General Appearance: cooperative Orientation / Consciousness: awake HEENT normocephalic Neck full ROM Lymph Lymphatic: no lymphadenopathy noted Chest inspection of chest normal Resp normal respiratory effort and normal air movement Effort and Inspection: able to speak in complete sentences and symmetric chest movement GI soft to palpation and non-tender Inspection: gravid Palpation: soft; Negative for tender external exam normal Manual OB Exam: presentation cephalic, dilated 6, effaced 80 and station - 2 Back/Spine normal to inspection Extremity normal to inspection and full ROM Skin no rashes or lesions noted Psych mental status grossly normal Appearance: grossly normal Speech: normal speech Labs Labs Labs: Blood Type O POSITIVE Antibody Screen NEGATIVE Hct 35.6 % (37-47) L Hgb 12.3 g/dL (12.0-15.0) Obstetrics Ultrasound Syphilis Total Ab Non-reactive Rubella IgG Antibody Non-Reactive (Nonreactive) Hep Bs Antigen Non-Reactive (Nonreactive) Hepatitis C Antibody Non-Reactive (Nonreactive) Chlamydia DNA (ESTEBAN) Negative (Negative) N.gonorrhoeae DNA (ESTEBAN) Negative (Negative) HIV 1&2 Antibody Non-Reactive (Nonreactive) Glucose 1 Hr 50 gm 129 mg/dL (70-140) Rhogam given: No Assessment & Plan (1) SROM (spontaneous rupture of membranes): COMMENT: clear fluid. ROM at 2100 08/03. Afebrile (2) Active labor: PLAN: Patient presents IAL, plan expectant management for , pitocin/AROM PRN if needed. Pain management: plans epidural. GBS neg. Management of any complications: see problem list I have reviewed the [facility] and made any clinically relevant updates. Dr Shaw aware of admission and plan. agrees with above (3) Uterine size date discrepancy : COMMENT: passed 2nd one hour [id number] grams at 36.6 weeks est weight at 40 wks 4436 grams (4) Shortness of breath: (5) Rubella non-immune status, antepartum: COMMENT: MMR pp (6) Supervision of normal : QUALIFIERS: Normal : other normal Trimester: second trimester Qualified Code(s): Z34.82 - Encounter for supervision of other normal , second trimester COMMENT: PRR, , SANDRINE 08/17/24, PC: Shelby, : Ran (7) : QUALIFIERS: Weeks of gestation: 37 weeks Qualified Code(s): Z3A.37 - 37 weeks gestation of COMMENT: GBS neg, normal anatomy, Discussed genetic and carrier testing- declines. (8) H/O pre-eclampsia: COMMENT: baseline PEC labs obtained with nob. (9) ASCUS of cervix with negative high risk HPV: COMMENT: repeated pap 01/06 Charges/Coding Multi Select Codes Urinary/Genital Urinary/Genital CPT Codes: No Charge
[2024-08-04 09:34] LABS: Syphilis Antibodies Non-reactive
[2024-08-04] MEDS: fentaNYL-bupivacaine (epidural) 100 ML BAG EPIDURAL ×2 (09:38→15:39)
[2024-08-04] MEDS: Lactated Ringers 1,000 ML 50 ML IV ×2 (09:40→09:48)
--- NOTE | 2024-08-04 10:30 | PCM.PN.BLA ---
Progress Note comfortable with epidural current tracing: FHT: 130 Moderate variability reactive no decelerations category I tracing [place]: 4-5 minute Contractions Membranes: finished rupturing for large amount clear fluid SVE:7/80/-2 A/P: Continue with position changes start pitocin per protocol if needed Epidural per anesthesia neg GBS prophylaxis Anticipate Dr Bone aware of above assessment and agrees with plan of care Assessment & Plan Assessment/Plan (1) Active labor: (2) SROM (spontaneous rupture of membranes): (3) Uterine size date discrepancy : (4) Shortness of breath: (5) Rubella non-immune status, antepartum: (6) Supervision of normal : QUALIFIERS: Normal : other normal Trimester: second trimester Qualified Code(s): Z34.82 - Encounter for supervision of other normal , second trimester (7) : QUALIFIERS: Weeks of gestation: 37 weeks Qualified Code(s): Z3A.37 - 37 weeks gestation of (8) H/O pre-eclampsia: (9) ASCUS of cervix with negative high risk HPV: Multi Select Codes Urinary/Genital Urinary/Genital CPT Codes: No Charge
[2024-08-04] MEDS: Oxytocin 15 Units/NS 250ml 15 UNITS/250 ML IV.SOLN 2 UNITS IV (12:14)
--- NOTE | 2024-08-04 14:32 | PCM.PN.BLA ---
Progress Note comfortable with epidural current tracing: FHT: 135 Moderate variability reactive no decelerations category I tracing. periods of minimal variability at times [place]: 5-6 Contractions Membranes: remains clear SVE:8/80/-1 A/P: Continue with position changes Titrate pitocin per protocol Epidural per anesthesia GBS neg Anticipate Dr Bone aware of above assessment and agrees with plan of care Assessment & Plan Assessment/Plan (1) Active labor: (2) SROM (spontaneous rupture of membranes): (3) Uterine size date discrepancy : (4) Shortness of breath: (5) Rubella non-immune status, antepartum: (6) Supervision of normal : QUALIFIERS: Normal : other normal Trimester: second trimester Qualified Code(s): Z34.82 - Encounter for supervision of other normal , second trimester (7) : QUALIFIERS: Weeks of gestation: 37 weeks Qualified Code(s): Z3A.37 - 37 weeks gestation of (8) H/O pre-eclampsia: (9) ASCUS of cervix with negative high risk HPV: Multi Select Codes Urinary/Genital Urinary/Genital CPT Codes: No Charge
[2024-08-04] MEDS: Methylergonovine 0.2 MG/ML Ampul IM (17:03)
--- NOTE | 2024-08-04 17:08 | OB.VAGDELI_ITS ---
Assessment & Plan (1) Active labor: (2) SROM (spontaneous rupture of membranes): COMMENT: clear fluid. ROM at 2100 08/03. Afebrile (3) Uterine size date discrepancy : COMMENT: passed 2nd one hour gct-3686 grams at 36.6 weeks est weight at 40 wks 4436 grams (4) Shortness of breath: (5) Rubella non-immune status, antepartum: COMMENT: MMR pp (6) Supervision of normal : QUALIFIERS: Normal : other normal Trimester: second trimester Qualified Code(s): Z34.82 - Encounter for supervision of other normal , second trimester COMMENT: PRR, , SANDRINE 08/17/24, PC: [place], : Ran (7) : QUALIFIERS: Weeks of gestation: 37 weeks Qualified Code(s): Z3A.37 - 37 weeks gestation of COMMENT: GBS neg, normal anatomy, Discussed genetic and carrier testing- declines. (8) H/O pre-eclampsia: COMMENT: baseline PEC labs obtained with nob. (9) ASCUS of cervix with negative high risk HPV: COMMENT: repeated pap 01/06 Maternal Data Information SANDRINE Calculator Estimated Delivery Date Method Current WG Current Estimate 08/17/24 LMP (Certain) 38w 1d Gestational age: 38 weeks 1 d Vaginal Delivery Maternal Presentation Maternal Presentation: Active Labor and Spontaneous Rupture of Membranes Type of Induction: Pitocin Vaginal Delivery Information Procedure Performed: Spontaneous Vaginal Delivery Date of Procedure: 08/04/24 Pre-Procedure Diagnosis: 23 y/o @ 38 weeks, spontaneous rupture of membranes Post-Procedure Diagnosis: 23 y/o @ 38 weeks, spontaneous rupture of membranes Type of anesthesia: Epidural Special Medications: methergine Estimated Blood Loss: 400cc Time of Delivery: 16:58 Findings Description of procedure: Patient began pushing and delivered the head in the JEFF presentation. The head was delivered atraumatically. The anterior and posterior shoulders delivered without complication followed by the rest of the infant and the was placed on the maternal abdomen. Delayed cord clamping was employed for approximately 60 seconds. Cord was clamped and cut and gentle traction was applied to the cord and the placenta delivered spontaneously immediately following it was noted to be intact with three-vessel cord. The perineum and vagina were inspected and noted to have no laceration. EBL was 400cc. Patient and infant tolerated delivery well. Presentation: Vertex Amniotic Membrane Rupture Type: Spontaneous Amniotic Fluid Description: Clear Placental Delivery Description: Spontaneous Placenta Disposition: [facility] Specimen collected: No Cord Vessel Description: 3 Vessels Cord Entanglement: None Infant A Gender: Male (1 minute): 8 (5 minute): 9 Delayed Cord Clamping: Yes Production Mechanic head of visual merchandising: No Post Vaginal Deli Medications given after delivery: IV Pitocin and IM Methergin Episiotomy Description: None Laceration: None Complication Complications: Yes Complication Details: none Multi Select Codes Urinary/Genital Urinary/Genital CPT Codes: 80574 Vaginal Delivery [facility]
--- NOTE | 2024-08-04 17:14 | DCINST_ITS ---
Discharge Instructions Diet Discharge Diet: No restrictions Activity Discharge Activity: Return to Normal Activity, May Not Drive (while taking narcotic pain medications.) and May Shower May resume sexual activity in: 4-6 weeks Dressing / Incision Call your doctor if your incision/area has: Continuous Slow Oozing, Sudden Increased Bleeding, Increased Pain/ Swelling, Increased Redness and Foul Smelling Discharge Follow Up Care Please Follow Up With: Elsa Shaw, DO When: Call [phone] to make an appointment with your doctor in 6 weeks. If you had elevated blood pressure or 4th degree laceration, you will need to be seen in 2 weeks. Test Results: Test results from this visit will be discussed in further detail at your follow- up appointment, if applicable. Discharge Plan Admission Admit Date/Time: 08/04/24 08:14 Attending Provider: Elsa Shaw Primary Care Provider: Esperanza Physician,Rosalie Primary Discharge Orders/Prescriptions Prescriptions: No Action prenat.vits,dorothy,[id number] Tablet 1 tab PO DAILY Referrals / Follow Up: Care Physician,No Primary [Primary Care Provider] -
[2024-08-04] MEDS: Oxytocin 15 Units/NS 250ml 15 UNITS/250 ML IV.SOLN 83 UNITS IV (17:56)
[2024-08-04 19:52] LABS: Absolute Lymphocyte Count 1.51 X10^3/uL (0.83-4.51); Absolute Neutrophil Count 11.9 X10^3/uL (2.0-7.7); Basophil# 0.03 X10^3/uL; Basophil% 0.2 % (0-1); Eosinophil# 0.09 X10^3/uL; Eosinophils% 0.6 % (0-5); Hematocrit 35.7 % (37-47); Hemoglobin 12.2 g/dL (12.0-15.0); Lymphocyte # 1.51 X10^3/ul (0.83-4.51); Lymphocyte % 10.3 % (19-41); Mean Corp Hgb Conc 34.2 g/dL (32-36); Mean Corpuscular Hgb 30.7 pg (27.0-32.0); Mean Corpuscular Volume 89.9 fL (81-99); Mean Platelet Vol. 10.6 fl (6.2-12.0); Monocyte# 1.03 X10^3/uL; NRBC Flagged by Analyzer 0 % (0-5); Neutrophil # 11.94 X10^3/uL (2.7-7.7); Neutrophil % 81.5 % (47-70); Platelet Count 211 K/mm3 (150-450); RBC Distribution Width CV 12.3 % (11.6-14.6); RBC Distribution Width SD 40.5 fl (35.1-43.9); Red Blood Count 3.97 M/mm3 (4.2-5.4); White Blood Count 14.7 K/mm3 (4.4-11.0)
[2024-08-04] MEDS: Cefazolin 2 GM in Syringe IV (19:52)
[2024-08-05 04:13] VITALS: BP 148/63; PULSE 106; RESP 16; TEMP 37.5
[2024-08-05 04:14] VITALS: BP 148/63; PULSE 106
[2024-08-05] MEDS: Ibuprofen 600 MG Tablet PO ×2 (04:15→09:52)
[2024-08-05 09:41] VITALS: BP 123/70; PULSE 82
[2024-08-05 09:50] VITALS: BP 123/70; PULSE 82; RESP 16; TEMP 36.8
--- NOTE | 2024-08-05 09:50 | PCM.PN.OB ---
Subjective Subjective Patient doing well without complaints. Tolerating PO. Ambulating and voiding without difficulty. Feeding well. Denies chest pain, shortness of breath, calf pain/swelling, fevers, chills, lightheadedness. Objective Data Objective Data Vital Signs: Vital Signs Temp Pulse Resp BP Pulse Ox O2 Del Method 99.5 F H 82 16 123/70 H 96 Room Air 08/05/24 04:13 08/05/24 09:41 08/05/24 04:13 08/05/24 09:41 08/04/24 19:07 08/05/24 04:13 Oxygen Delivery Method Room Air Weight: 190 lb 11.198 oz Body Mass Index (BMI) 33.7 Intake & Output: Intake and Output for Last 24 Hours 08/03/24 08/04/24 08/05/24 23:59 23:59 23:59 Intake Total 825.47 / 825.47 Output Total 2500 / 2500 1000 / 1000 Balance -1674.53 / -1674.53 -1000 / -1000 Lab / Micro Data 08/04/24 19:05 Labs: Laboratory Results - last 24 hr 08/04/24 08:30: Antibody Screen NEGATIVE 08/04/24 19:05: WBC 14.7 H, RBC 3.97 L, Hgb 12.2, Hct 35.7 L, MCV 89.9, MCH 30.7, MCHC 34.2, RDW Std Deviation 40.5, RDW Coeff of [place] 12.3, Plt Count 211, MPV 10.6, Immature Gran % (Auto) 0.400, Neut % (Auto) 81.5 H, Lymph % (Auto) 10.3 L, [place] % (Auto) 7.0, Eos % (Auto) 0.6, Baso % (Auto) 0.2, Absolute Neuts (auto) 11.9 H, Absolute Lymphs (auto) 1.51, Nucleated RBC % 0 ROS Constitutional Constitutional: Denies chills, fatigue, fever(s), poor appetite or weakness Eyes Eyes: Denies blurry vision, change in vision, seeing flashes or spots in vision ENT HEENT: Denies dizziness, headache(s), loss taste/smell or sore throat Cardiovascular Cardiovascular: Denies chest pain, dizziness, dyspnea, irregular heart rhythm, palpitations or rapid heart rate Respiratory/Chest Respiratory/Chest: Denies chest tightness, cough, dyspnea or breast pain Gastrointestinal Gastrointestinal: Denies abdominal pain, constipation or vomiting Genitourinary Genitourinary: Denies dysuria or flank pain Musculoskeletal Musculoskeletal: Denies difficulty walking, joint pain, limited range of motion or numbness Neurologic Neurologic: Denies abnormal movements, abnormal speech, dizziness, numbness, seizure-like activity or syncope Psychiatric Psychiatric: Denies anxiety, behavioral changes, change in appetite, confusion, depression or suicidal thoughts Physical Exam Const alert, oriented x3 and no apparent distress General Appearance: cooperative and comfortable Resp normal respiratory effort Cardio regular rate GI normal to inspection, nondistended, normoactive bowel sounds GI Narrative: uterus is firm below umbilicus Palpation: soft Back/Spine no CVA tenderness and thoraco-lumbar ROM normal Extremity normal to inspection, no clubbing, cyanosis or edema, no calf tenderness and no pedal edema Psych mental status grossly normal, thought process normal, cooperative, affect normal, speech normal, activity/motor behavior normal, denies homicidal ideation and denies suicidal ideation Assessment & Plan (1) Status post vaginal delivery: COMMENT: Azar LUKE PLAN: s/p PPD # 1 1. routine post delivery care 2. breast feeding- support given 3. rh positive 4. rubella immune 5. patient would like to be discharged to home after her baby is cleared.
[2024-08-05 13:40] VITALS: BP 133/63; PULSE 86; RESP 16; TEMP 36.1
--- NOTE | 2024-08-05 17:47 | NURSING ---
pt refuses MMR vaccine
== END 2024-08-05 19:05 | disposition home or self-care (01) | DRG 807 ==
LOC: WPOUT 08:38 → WP 08:39
PROVIDERS: Admitting Provider Obstetrics & Gynecology; Referring Provider Obstetrics & Gynecology; Visit Provider Obstetrics & Gynecology
DX: O26.843 Uterine size-date discrepancy, third trimester (principal); Z37.0 Single live birth; Z3A.38 38 weeks gestation of pregnancy; Z87.891 Personal history of nicotine dependence; Z87.59 Personal history of other complications of pregnancy, childbirth and the puerperium
CPT/HCPCS: 59025; 59050; 84112; 85025; 86780; 86850; 86900; 86901; 99221; J7120; G0378

== ENCOUNTER → 2025-07-23 | Outpatient (CLI) | payer SELFPAY ==
--- NOTE | 2025-07-23 13:50 | US_ITS ---
PROCEDURE: BREAST LIMITED UNILATERAL 07/23/2025 REASON FOR EXAM: F, Age 24 y/o , RIGHT BREAST MASS Palpable mass for 4 years. Patient believes it is stable in size. It occasionally is tender when she is on her menstrual cycle. Patient gave on 08/04/2024 and has not breast-fed in the past 6-7 months. COMPARISON: Mammogram dated 07/23/2025. TECHNIQUE: Procedure Code: USBRSTLIMIT Modality: US Procedure: BREAST LIMITED UNILATERAL FINDINGS: There is a solid, hypoechoic, lobulated mass in the right breast at the 10 o'clock, 7 cm from the nipple position measuring 2.8 x 2.6 x 2.0 cm. The mass has smooth margins. The mass does not produce any posterior shadowing. The mass does correlate to the palpable abnormality and the mass seen on the mammogram. There is blood flow to the mass. There is a cystic component within the mass. The mass probably represents a fibroadenoma however, a short-term six-month follow-up ultrasound is recommended to document stability. There are 2 benign-appearing axillary lymph nodes. These measure 2.1 x 1.0 x 0.6 cm and 1.6 x 0.5 x 0.4 cm. The cortex of the lymph nodes is not abnormally thickened. The cortex measures approximately 3 mm. These do have fatty hilum. 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 The patient states she believes it has been stable in s ize. Short-term six-month follow-up ultrasound is recommended to document stability. If it does increase in size in the interim, a follow-up ultrasound and biopsy may be warranted. Otherwise, she should return in 6 months for a follow-up ultrasound examination. BI-RADS 3: PROBABLY BENIGN. RECOMMENDATION: Six-month Reading Location: [id number]
--- NOTE | 2025-07-23 14:00 | BI_ITS ---
EXAM: DIAG MAMM W/CAD, BILAT N/A CLINICAL HISTORY: F, Age 24 y/o , RIGHT BREAST MASS. Right breast palpable mass. Palpable mass is tender during the time of her menstrual cycle. She has had it for approximately 4 years. She gave on 08/04/2024 and has not breast-fed in 6 months. She denies any nipple discharge. TECHNIQUE: Procedure Code: [id number] Modality: MG Procedure: DIAG MAMM W/CAD, BILAT. COMPARISON: None. This is a baseline study. FINDINGS: TISSUE DENSITY: The breasts are extremely dense, which lowers the sensitivity of mammography. Bilateral Breast Mammographic Findings: A radiopaque marker is placed right breast palpable abnormality. There is a 3.5 cm partially obscured isodense mass seen in the superior outer, far posterior aspect of the right breast correlating to the palpable abnormality. Further workup with ultrasound is indicated. No suspicious masses, suspicious cluster of microcalcifications, architectural distortion or secondary sign of malignancy is identified in the left breast. BI/DIAG MAMM W/CAD, BILAT IMPRESSION: There is a mass in the right breast correlating to the palpable area that is te nder. Further workup with ultrasound will be performed. Please see that report. OVERALL FINAL ASSESSMENT BI-RADS 0: INCOMPLETE - NEED ADDITIONAL IMAGING EVALUATION. RECOMMENDATION: Ultrasound Recommended Additional Recommendation none A letter with findings and recommendations will be mailed to the patient. Reading Location: [id number]
== END | disposition home or self-care (01) ==
LOC: OPBI 13:49
PROVIDERS: Referring Provider Nurse Practitioner Women's Health; Visit Provider Nurse Practitioner Women's Health
DX: N63.12 Unspecified lump in the right breast, upper inner quadrant (principal)
CPT/HCPCS: 76642; 77062; 77066; G0279

== ENCOUNTER → 2025-07-31 | Outpatient (CLI) | payer SELFPAY ==
--- NOTE | 2025-07-31 14:30 | BRBX_PTH ---
PATIENT: SALMA EDWARDS LOC: [facility] U#:[id number] AGE/SX: 24/F ROOM: RE07/31/[address]: Dr. Kathy Matamoros MD : 2000 BED: DIS: 07/31/2025 SPEC #: [id number] RECD: 07/31/25 15:45 STATUS: MARIO LESVIA #: [id number] VINCE: 07/31/25 14:[address]: Kathy Matamoros DEPT: SURGICAL PATHOLOGY RECD BY: Bharat iRck ENTERED: 08/01/25 10:12 SP TYPE: BREAST BX OTHR DR: Juana Potter PA-C Tissues: A - Right breast, NOS Procedures: Surgery Specimen Level IV HEADER OPERATION: Biopsy right breast lump PRE-OP DIAGNOSIS: Right breast lump TISSUE SUBMITTED: A- Right breast, 10o'clock, 7cm from nipple MICROSCOPIC DIAGNOSIS A. Right breast, 10:00 and 7 cm from nipple, needle biopsy: - Fibroadenoma MICROSCOPIC DESCRIPTION Slides are reviewed. GROSS DESCRIPTION Received in formalin labeled with the patient's name and date of . Designated as R breast lump are 2 winn-white tissue cores, 0.9 cm and 1.3 cm in length by 0.1 cm in diameter. Entirely submitted in 1 cassette. Cold ischemic time: <1-minuteFormalin fixation time: 29 hours IN 08/01/[id number]
== END | disposition home or self-care (01) ==
LOC: LABSPEC 15:53
PROVIDERS: PCP Family Medicine; Referring Provider Surgery; Visit Provider Surgery
DX: D24.1 Benign neoplasm of right breast (principal)
CPT/HCPCS: 88305